=== PATIENT | female | born 1935 | race Caucasian/White ===

== ENCOUNTER → 2016-12-15 | Outpatient (CLI) | payer MEDICARE ==
[~2016-12-15] MED LIST: ALDA25TA2 PO; ASPI1TAB PO; BACITAB3 PO; CETI10TA PO; D5W 1,000 ML IV SCH; DIGO0.12 PO; DIGO5EL PO; ELIQ5TAB PO; FISH100049 PO; FURO20TA2 PO; LIDOCAINE VISCOUS 2% SOLN 15ML UDC As Ordered ONE; LISI10TA4 PO; LOPR1TAB6 PO; MIDAZOLAM INJ 2 MG/2 ML VIAL (J2250) As Ordered ONE; MULT1TAB8 PO; OSCA200T PO; PANT20TA PO; RANI15TA PO; VITMTA PO
[2016-12-15 16:35] VITALS: BP 107/59
--- NOTE | 2016-12-15 18:13 | T-ECHO ---
DATE OF PROCEDURE: 12/15/2016 REFERRING PHYSICIAN: Dr. Silvestre Caldwell INDICATION: 1. Mitral valve disorders (non-rheumatic). 2. 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 POSTPROCEDURE DIAGNOSES: 1. Mitral isak prolapse (non-rheumatic mitral valve disorders) with moderate mitral regurgitation. 2. No vegetations. 3. Moderate aortic valve sclerosis with very mild aortic regurgitation. 4. Moderate atheroma involving the distal aortic arch and descending thoracic aorta. 5. Enlargement of the left atrium and left atrial appendage. FINDINGS: 1. Mitral isak prolapse (non-rheumatic mitral valve disorders) with moderate mitral regurgitation. 2. No vegetations. 3. Moderate aortic valve sclerosis with very mild aortic regurgitation. 4. Moderate atheroma involving the distal aortic arch and descending thoracic aorta. 5. Enlargement of the left atrium and left atrial appendage. PROCEDURE PERFORMED: Transesophageal echocardiogram. PROCEDURE PERFORMED BY: Silvestre Caldwell MD MOLD UNLOADER: None. LIGHT CONSCIOUS SEDATION: Midazolam 3 mg IV. COMPLICATIONS: None. DESCRIPTION OF PROCEDURE: Esophageal intubation was accomplished with a Hever multiplane two-dimensional transesophageal echocardiogram probe. This was moderately difficult due to presence of a pharyngeal spur but ultimately I was successful at esophageal intubation. Rhythm was atrial fibrillation with controlled ventricular response. The left ventricle appeared normal in size and systolic function. Right ventricle appeared normal in size and systolic function. Left atrium and left atrial appendage were enlarged. Type 1 spontaneous echocontrast was seen within the left atrium. Mild mitral valve prolapse was present and also there was loose chordae but no broken chordae and no flail segments. Moderate mitral regurgitation was present with two jets of mitral regurgitation observed. No systolic flow reversal in the left upper pulmonary vein by pulse wave Doppler. Tricuspid leaflets appeared structurally and functionally normal. Pulmonic valve appeared normal. Aortic valve was 3-cuspid and displayed moderate focal thickening and focal calcific deposits. No aortic stenosis. Very mild aortic regurgitation was present. In addition to left atrial enlargement and enlargement of the left atrial appendage, there was also type 1 spontaneous echo contrast (smoke). No pericardial effusion. Distal aortic arch and descending thoracic aorta demonstrated mild atheroma without mobile components. CONCLUSIONS: 1. Non-rheumatic mitral valve disorders (mitral valve prolapse) with mild prolapse. Associated loose chordae but no broken chordae and no flail segments. Moderate mitral regurgitation. 2. Moderate aortic valve sclerosis without stenosis. Very mild aortic regurgitation. 3. Normal left ventricle size and systolic function. No regional wall motion abnormalities. 4. Moderate atheroma involving the distal aortic arch and descending thoracic aorta. No mobile components. 5. Left atrial enlargement and enlargement of the left atrial appendage. 6. Type 1 spontaneous echo contrast seen in the left atrium.
== END ==
LOC: M OPP 13:53
PROVIDERS: ATTEND Internal Medicine Cardiovascular Disease
DX: I34.8 Other nonrheumatic mitral valve disorders (principal); I70.0 Atherosclerosis of aorta; I51.7 Cardiomegaly; Z79.899 Other long term (current) drug therapy; Z79.82 Long term (current) use of aspirin
CPT/HCPCS: 93312; 93320; 93325; J2250

== ENCOUNTER → 2017-01-20 | Outpatient (REF) | payer MEDICARE ==
[~2017-01-20] MED LIST changes: -D5W 1,000 ML IV SCH; -LIDOCAINE VISCOUS 2% SOLN 15ML UDC As Ordered ONE; -MIDAZOLAM INJ 2 MG/2 ML VIAL (J2250) As Ordered ONE
[2017-01-20 17:11] LABS: ALBUMIN 3.4 GM/DL (3.2-5.2); CALCIUM LEVEL 8.7 MG/DL (8.8-10.2); CREATININE FOR GFR 1.07 MG/DL (0.55-1.02); DIGOXIN LEVEL 0.7 NG/ML (0.5-2.0); GLOMERULAR FILTRATION RATE 52.5 (>32); PHOSPHORUS LEVEL 3.4 MG/DL (2.5-4.9); POTASSIUM SERUM 4.7 MEQ/L (3.5-5.1)
== END ==
LOC: M LABDRAW1 15:09
PROVIDERS: ATTEND Internal Medicine Cardiovascular Disease
DX: I48.2 Chronic atrial fibrillation (principal); I50.33 Acute on chronic diastolic (congestive) heart failure

== ENCOUNTER → 2017-03-17 | Outpatient (REF) | payer MEDICARE ==
[2017-03-17 12:35] LABS: MEAN CORPUSCULAR HEMOGLOBIN 31.1 pg (27.0-33.0); MEAN CORPUSCULAR VOLUME 97.2 fl (80.0-96.0)
[2017-03-17 12:43] LABS: ALBUMIN 3.7 GM/DL (3.2-5.2); ALBUMIN/GLOBULIN RATIO 1.37 (1.00-1.93); BILIRUBIN,TOTAL 0.4 MG/DL (0.2-1.0); CALCIUM LEVEL 9.2 MG/DL (8.8-10.2); CREATININE FOR GFR 1.04 MG/DL (0.55-1.02); GLOMERULAR FILTRATION RATE 54.3 (>32); POTASSIUM SERUM 4.9 MEQ/L (3.5-5.1); TOTAL PROTEIN 6.4 GM/DL (6.4-8.2)
== END ==
LOC: M SFHCPLAZ 07:41
PROVIDERS: ATTEND Internal Medicine
DX: D72.829 Elevated white blood cell count, unspecified (principal); I10 Essential (primary) hypertension

== ENCOUNTER → 2017-07-10 | Outpatient (REF) | payer MEDICARE ==
[~2017-07-10] MED LIST changes: +BACITAB PO; -BACITAB3 PO
[2017-07-10 13:07] LABS: ALBUMIN 3.7 GM/DL (3.2-5.2); ALBUMIN/GLOBULIN RATIO 1.09 (1.00-1.93); BILIRUBIN,TOTAL 0.5 MG/DL (0.2-1.0); CALCIUM LEVEL 9.3 MG/DL (8.8-10.2); CREATININE FOR GFR 1.04 MG/DL (0.55-1.02); GLOMERULAR FILTRATION RATE 54.3 (>32); POTASSIUM SERUM 4.5 MEQ/L (3.5-5.1); TOTAL PROTEIN 7.1 GM/DL (6.4-8.2)
== END ==
LOC: M SFHCPLAZ 08:00
PROVIDERS: ATTEND Internal Medicine
DX: I10 Essential (primary) hypertension (principal); E78.00 Pure hypercholesterolemia, unspecified; I48.2 Chronic atrial fibrillation

== ENCOUNTER → 2017-11-30 | Outpatient (REF) | payer MEDICARE ==
[2017-11-30 13:50] LABS: ALBUMIN 3.8 GM/DL (3.2-5.2); ALBUMIN/GLOBULIN RATIO 1.23 (1.00-1.93); ALKALINE PHOSPHATASE 88 U/L (45-117); ALT/SGPT 35 U/L (12-78); ANION GAP 5 MEQ/L (8-16); AST/SGOT 39 U/L (7-37); BILIRUBIN,TOTAL 0.5 MG/DL (0.2-1.0); BLOOD UREA NITROGEN 44 MG/DL (7-18); CALCIUM LEVEL 9.3 MG/DL (8.8-10.2); CARBON DIOXIDE LEVEL 34 MEQ/L (21-32); CHLORIDE LEVEL 101 MEQ/L (98-107); GLOMERULAR FILTRATION RATE 56.6 (>32); GLUCOSE, FASTING 82 MG/DL (70-100); MAGNESIUM LEVEL 2.5 MG/DL (1.8-2.4); POTASSIUM SERUM 4.7 MEQ/L (3.5-5.1); SODIUM LEVEL 140 MEQ/L (136-145); TOTAL PROTEIN 6.9 GM/DL (6.4-8.2)
== END ==
LOC: M SFHCPLAZ 08:45
DX: I10 Essential (primary) hypertension (principal)
CPT/HCPCS: 83735

== ENCOUNTER → 2018-04-13 | Outpatient (REF) | payer MEDICARE ==
[2018-04-13 10:56] LABS: ALBUMIN 3.8 GM/DL (3.2-5.2); ALBUMIN/GLOBULIN RATIO 1.12 (1.00-1.93); ALKALINE PHOSPHATASE 94 U/L (45-117); ALT/SGPT 38 U/L (12-78); ANION GAP 7 MEQ/L (8-16); AST/SGOT 40 U/L (7-37); BILIRUBIN,TOTAL 0.5 MG/DL (0.2-1.0); BLOOD UREA NITROGEN 38 MG/DL (7-18); CALCIUM LEVEL 9.5 MG/DL (8.8-10.2); CARBON DIOXIDE LEVEL 33 MEQ/L (21-32); CHLORIDE LEVEL 101 MEQ/L (98-107); CHOLESTEROL LEVEL 165 MG/DL (<200); CHOLESTEROL RISK RATIO 2.462 (<5); CREATININE FOR GFR 1.07 MG/DL (0.55-1.30); GLOMERULAR FILTRATION RATE 52.4 (>32); GLUCOSE, FASTING 84 MG/DL (70-100); HDL CHOLESTEROL 67 MG/DL (>40); LDL CHOLESTEROL 87.2 MG/DL (<100); MAGNESIUM LEVEL 2.5 MG/DL (1.8-2.4); NON-HDL-C 98 MG/DL; POTASSIUM SERUM 4.8 MEQ/L (3.5-5.1); SODIUM LEVEL 141 MEQ/L (136-145); TOTAL PROTEIN 7.2 GM/DL (6.4-8.2); TRIGLYCERIDES LEVEL 54 MG/DL (<150)
== END ==
LOC: M SFHCPLAZ 07:58
DX: I10 Essential (primary) hypertension (principal); E78.00 Pure hypercholesterolemia, unspecified
CPT/HCPCS: 83735

== ENCOUNTER → 2018-10-20 | Outpatient (REF) | payer MEDICARE ==
[2018-10-20 13:17] LABS: ALBUMIN 3.6 GM/DL (3.2-5.2); ALBUMIN/GLOBULIN RATIO 1.13 (1.00-1.93); ALKALINE PHOSPHATASE 109 U/L (45-117); ALT/SGPT 39 U/L (12-78); ANION GAP 9 MEQ/L (8-16); AST/SGOT 44 U/L (7-37); BILIRUBIN,TOTAL 0.4 MG/DL (0.2-1.0); BLOOD UREA NITROGEN 37 MG/DL (7-18); CARBON DIOXIDE LEVEL 30 MEQ/L (21-32); CHLORIDE LEVEL 102 MEQ/L (98-107); CREATININE FOR GFR 1.06 MG/DL (0.55-1.30); GLUCOSE, FASTING 67 MG/DL (70-100); MAGNESIUM LEVEL 2.2 MG/DL (1.8-2.4); POTASSIUM SERUM 4.2 MEQ/L (3.5-5.1); SODIUM LEVEL 141 MEQ/L (136-145); TOTAL PROTEIN 6.8 GM/DL (6.4-8.2)
== END ==
LOC: M SFHCPLAZ 09:13
DX: I10 Essential (primary) hypertension (principal); M89.8X5 Other specified disorders of bone, thigh
CPT/HCPCS: 83735

== ENCOUNTER → 2018-12-24 | Outpatient (CLI) | payer MEDICARE ==
[~2018-12-24] MED LIST changes: -PANT20TA PO; +PANT20TA2 PO
--- NOTE | 2018-12-24 13:55 | REP ---
Chest two views HISTORY: Acute bronchitis Comparison: 10/24/2016 An increase in interstitial markings is present in the lungs consistent with chronic interstitial fibrosis. A calcified granuloma is present in the right upper lobe. Parenchymal density is present in the left lower lobe consistent with atelectasis or infiltrate. The cardiac silhouette is enlarged. The pulmonary vasculature is normal in appearance. There is scoliosis of the the upper and mid thoracic spine convex to the right and lower thoracic and lumbar spine convex to the left. Degenerative change is present in the thoracic spine. IMPRESSION: Chronic interstitial fibrosis. 2. Left lower lobe atelectasis or infiltrate. Electronically Signed by Geovany Ortega MD 12/24/2018 01:47 P
== END ==
LOC: M WUC 12:06
PROVIDERS: ATTEND Physician Assistant
DX: R91.8 Other nonspecific abnormal finding of lung field (principal); J98.4 Other disorders of lung; J20.9 Acute bronchitis, unspecified

== ENCOUNTER → 2019-03-27 | Outpatient (CLI) | payer MEDICARE ==
[~2019-03-27] MED LIST changes: -ASPI1TAB PO; +ASPI81TA26 PO
--- NOTE | 2019-03-27 11:47 | REP ---
HISTORY: Followup pneumonia. COMPARISON: 12/24/2018, which showed a patchy opacity in the left lower lobe consistent with pneumonia. The patchy opacity seen previously has resolved. Chronic fibrotic changes are seen throughout the lung fallon, status quo. No acute patchy parenchymal opacities or pleural effusions have developed. There is cardiomegaly, status quo. There are chronic osseous changes which are stable. There is an incidental calcified granuloma in the right upper lobe, stable. IMPRESSION: Chronic changes without evidence of acute cardiopulmonary disease. Electronically Signed by Osbaldo Tobin DO 03/27/2019 12:03 P
== END ==
LOC: M WUC 11:03
PROVIDERS: ATTEND Internal Medicine
DX: J18.1 Lobar pneumonia, unspecified organism (principal); I51.7 Cardiomegaly

== ENCOUNTER → 2019-04-26 | Outpatient (REF) | payer MEDICARE ==
[~2019-04-26] MED LIST changes: +ATOR1TAB19; +BISO5TAB5 PO; +DIGO0.12; +ELIQ2.5T PO; +FERR325T3 PO; +PROBCAP14 PO
[2019-04-26 11:31] LABS: ALBUMIN 3.7 GM/DL (3.2-5.2); BILIRUBIN,TOTAL 0.6 MG/DL (0.2-1.0); CALCIUM LEVEL 9.4 MG/DL (8.8-10.2); CHOLESTEROL RISK RATIO 2.253 (<5); CREATININE FOR GFR 1.05 MG/DL (0.55-1.30); GLOMERULAR FILTRATION RATE 53.4 (>32); MAGNESIUM LEVEL 2.2 MG/DL (1.8-2.4); POTASSIUM SERUM 4.4 MEQ/L (3.5-5.1); THYROID STIMULATING HORMONE 2.4 uIU/ML (0.358-3.740)
== END ==
LOC: M SFHCPLAZ 08:36
PROVIDERS: ATTEND Internal Medicine
DX: I10 Essential (primary) hypertension (principal); E78.00 Pure hypercholesterolemia, unspecified; R62.7 Adult failure to thrive

== ENCOUNTER 2019-04-29 12:45 | Day surgery (SDC) | payer MEDICARE ==
[~2019-04-29] VITALS: Ht 160 cm; Wt 47.5 kg
[~2019-04-29 12:45] MED LIST changes: +LIDOCAINE 1% MDV 20ML VIAL SQ PRN; +LIDOCAINE 2% INJ 100 MG/5 ML SDV (FOR ANES.) As Ordered ONE; +LR 1,000 ML IV ONE; +fentaNYL 100 MCG/2 ML INJECTION (J3010) As Ordered ONE
[2019-04-29] MEDS ORDERED: LIDOCAINE VISCOUS 2% SOLN 15ML UDC As Ordered ONE (13:51)
[2019-04-29] MEDS ORDERED: PROPOFOL 200 MG/20 ML VIAL As Ordered ONE (14:29)
[2019-04-29] MEDS ORDERED: LABETALOL HCL 100 MG/20 ML VIAL As Ordered ONE (14:29)
--- NOTE | 2019-04-29 15:25 | T-ECHO ---
DATE OF PROCEDURE: 04/29/2019 REFERRING PROVIDER: OLYA Varner PREPROCEDURE DIAGNOSES: Mitral valve prolapse with mitral regurgitation. POSTPROCEDURE DIAGNOSES: Mitral valve prolapse with mitral regurgitation. See additional findings in conclusions below. PRINCIPAL FINDINGS: Mitral valve prolapse of the anterior and posterior mitral leaflets with myxomatous mitral leaflets. Associated moderate mitral regurgitation. No flail segments. Left atrial dilatation with type 1 spontaneous echo contrast in the left atrium and dense spontaneous echo contrast in the left atrial appendage. Presence of a left atrial appendage thrombus. Tricuspid valve prolapse with moderate tricuspid regurgitation. Normal LV systolic function. Right ventricle dilatation with right ventricle systolic function. Appearance of right ventricular hypertrophy. Calcific aortic valve disease with mild aortic regurgitation and by visual assessment at least mild aortic stenosis. Severe atheroma in the distal aortic arch and descending thoracic aorta. PROCEDURE: Transesophageal echocardiogram. ANESTHESIA: Moderate anesthetic care, as per [employer]. PROCEDURE PERFORMED BY: Silvestre Caldwell MD DISTRIBUTION SALES REPRESENTATIVE: None. The patient received viscous lidocaine to the back of her pharynx. COMPLICATIONS: None. DESCRIPTION OF PROCEDURE: Rhythm was atrial fibrillation with a controlled ventricular response. Esophageal intubation was performed with a Hever three-dimensional transesophageal echocardiogram probe. Esophageal intubation was difficult, but was eventually successful by Dr. Caldwell. The difficulty was a pharyngeal spur with a small esophageal opening. The left ventricle appeared normal in size and systolic function. Left ventricular ejection fraction was 70% by visual estimate. The right ventricles was dilated and had prominent trabeculations, suggestive of right ventricle hypertrophy. Normal right ventricle systolic function. The atria appeared enlarged. The left atrium especially appeared to be prominently enlarged. There was a small thrombus in the left atrial appendage. Type 1 spontaneous echo contrast is seen in the left atrium and was quite dense in the left atrial appendage. Atrial septum was intact anatomically and by color flow Doppler. Aortic valve was three-cusp and had severe focal thickening and focal calcific deposits and mild to moderate reduction in aortic cusp mobility. No fusion of the aortic cusps. Mild aortic regurgitation. By visual assessment, there appeared to be at least mild and at most moderate aortic valve stenosis. Mitral leaflets were myxomatous and displayed mitral valve prolapse at both the anterior and posterior mitral leaflets, especially the posterior mitral leaflet. No broken cordae or flail segments of the mitral leaflets. Multiple jets of mitral regurgitation was present. The overall degree of mitral valve regurgitation was judged to be moderate mitral regurgitation. Tricuspid leaflets appeared myxomatous and showed tricuspid valve prolapse. Moderate tricuspid regurgitation was present. Pulmonic valve was only mildly visualized and did appear normal. Mild pulmonic regurgitation was present. No pericardial effusion. The distal aortic arch and descending and thoracic aorta showed patches of severe atheroma. CONCLUSIONS: 1. 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 No broken cordae or flail segments. Moderate mitral regurgitation. 2. Left atrial appendage thrombus. Type 1 spontaneous echo contrast within the left atrium and left atrial appendage. 3. Probably severe left atrial dilatation by visual assessment. 4. Tricuspid valve prolapse with moderate tricuspid regurgitation. 5. Normal left ventricular size and systolic function. No regional LV wall motion abnormalities of the left ventricle. Left ventricular ejection fraction 70% by visual estimate. 6. Right ventricle dilatation with right ventricle hypertrophy. Normal RV systolic function. 7. Severe focal thickening and focal calcific deposits of a 3-cusp aortic valve. Mild aortic regurgitation. By visual assessment, there appeared to be mild to possibly moderate degree of aortic stenosis. 8. Severe atheroma in the distal aortic arch and descending thoracic aorta.
[2019-04-29 16:25] VITALS: BP 110/58
== END 2019-04-29 16:42 | disposition home or self-care (01) ==
LOC: M SDC 12:45
PROVIDERS: ATTEND Internal Medicine Cardiovascular Disease
DX: I34.1 Nonrheumatic mitral (valve) prolapse (principal); I48.2 Chronic atrial fibrillation; I10 Essential (primary) hypertension; E78.5 Hyperlipidemia, unspecified; Z79.01 Long term (current) use of anticoagulants; Z79.899 Other long term (current) drug therapy
CPT/HCPCS: 93312; 93320; 93325; J3010

== ENCOUNTER 2019-05-07 20:40 | Emergency (ER) | payer MEDICARE ==
[~2019-05-07] VITALS: Ht 160 cm; Wt 47.3 kg
[~2019-05-07 20:40] MED LIST changes: -LIDOCAINE 1% MDV 20ML VIAL SQ PRN; -LIDOCAINE 2% INJ 100 MG/5 ML SDV (FOR ANES.) As Ordered ONE; -LR 1,000 ML IV ONE; -fentaNYL 100 MCG/2 ML INJECTION (J3010) As Ordered ONE
[2019-05-07] MEDS ORDERED: ADACEL/BOOSTRIX VACCINE (DIPHTH/PERTUSS/ACELL/TETANUS)0.5ML SYR (90715) IM ONE (21:30)
[2019-05-07 21:42] VITALS: BP 146/73
== END 2019-05-07 21:59 | disposition home or self-care (01) ==
LOC: M ED 20:40
DX: S20.412A Abrasion of left back wall of thorax, initial encounter (principal); S70.12XA Contusion of left thigh, initial encounter; W01.0XXA Fall on same level from slipping, tripping and stumbling without subsequent striking against object, initial encounter; Y92.098 Other place in other non-institutional residence as the place of occurrence of the external cause; K21.9 Gastro-esophageal reflux disease without esophagitis; J30.9 Allergic rhinitis, unspecified; Z88.4 Allergy status to anesthetic agent; Z79.899 Other long term (current) drug therapy; Z79.01 Long term (current) use of anticoagulants

== ENCOUNTER → 2019-05-10 | Outpatient (CLI) | payer MEDICARE ==
--- NOTE | 2019-05-10 13:54 | REP ---
Clinical: Pain. Technique: Single AP view of the pelvis. Findings: Age-related osteopenia and moderate degenerative changes to the pelvis and hips noted. No obvious acute fracture or dislocation. Impression: Osteopenia and moderate generalized degenerative changes. No acute fracture or dislocation. Electronically Signed by Gamal Edwards MD 05/10/2019 01:46 P
--- NOTE | 2019-05-10 13:56 | REP ---
Clinical: Low back pain with recent fall. Technique: AP, lateral, bilateral oblique and coned-down views of the lumbosacral spine. Findings: Osteopenia with chronic mild levoconvex scoliosis and moderate multilevel degenerative disc osteophyte complexes noted. No obvious acute fracture / compression injury or subluxation. Extensive atherosclerotic changes to the aorta and branch vessels noted. Impression: Osteopenia and multilevel degenerative spondylosis. No obvious acute fracture / compression injury or subluxation. Electronically Signed by Gamal Edwards MD 05/10/2019 01:48 P
== END ==
LOC: M WUC 12:33
PROVIDERS: ATTEND Physician Assistant
DX: M25.78 Osteophyte, vertebrae (principal)

== ENCOUNTER → 2019-11-10 | Outpatient (CLI) | payer MEDICARE ==
[~2019-11-10] MED LIST changes: -BISO5TAB5 PO; +BISO5TAB9 PO; -DIGO0.12; +DIGO0.123
--- NOTE | 2019-11-10 12:00 | REP ---
Clinical: Acute bronchitis. Technique: PA and lateral. Comparison: 03/27/2019. Findings: Mediastinum and cardiac silhouette are within normal limits and stable. Lung fallon demonstrate diffuse chronic fibrosis and COPD/emphysematous changes. Acute right lower lobe infiltrate compatible with pneumonia. No effusion. No pneumothorax. Skeletal structures demonstrate osteopenia and degenerative changes. Impression: Acute right lower lobe pneumonia. Electronically Signed by Gamal Edwards MD 11/10/2019 11:51 A
== END ==
LOC: M WUC 11:33
PROVIDERS: ATTEND Physician Assistant
DX: J18.9 Pneumonia, unspecified organism (principal); J20.9 Acute bronchitis, unspecified

== ENCOUNTER → 2019-12-19 | Outpatient (CLI) | payer MEDICARE ==
[~2019-12-19] MED LIST changes: +BISO5TAB14 PO; -BISO5TAB9 PO
[2019-12-19 12:14] LABS: ALBUMIN 3.6 GM/DL (3.2-5.2); ALT/SGPT 31 U/L (12-78); BILIRUBIN,TOTAL 0.5 MG/DL (0.2-1.0); BLOOD UREA NITROGEN 29 MG/DL (7-18); CARBON DIOXIDE LEVEL 34 MEQ/L (21-32); CHLORIDE LEVEL 102 MEQ/L (98-107); CREATININE FOR GFR 0.88 MG/DL (0.55-1.30); GLOMERULAR FILTRATION RATE > 60.0 (>32); GLUCOSE, FASTING 94 MG/DL (70-100); MAGNESIUM LEVEL 2.2 MG/DL (1.8-2.4); POTASSIUM SERUM 4.8 MEQ/L (3.5-5.1); SODIUM LEVEL 141 MEQ/L (136-145); TOTAL PROTEIN 6.6 GM/DL (6.4-8.2)
== END ==
LOC: M PLALAB 09:05
PROVIDERS: ATTEND Internal Medicine
DX: I10 Essential (primary) hypertension (principal)

== ENCOUNTER → 2020-01-09 | Outpatient (CLI) | payer MEDICARE ==
--- NOTE | 2020-01-09 12:10 | REPPI ---
CHEST, TWO VIEWS: Comparison 11/10/2019 as well as other prior exams. The previously noted right lower lobe infiltrate appears to have essentially resolved. There is underlying mild interstitial fibrosis in each lung base which appears similar to more remote exams. Calcified granulomas again seen in the right apex. The heart is mildly enlarged. There is calcification of the thoracic aorta. Mediastinal silhouette is unchanged. There is curvature of the thoracolumbar spine convex to the left with degenerative changes. A stable compression deformity of an upper thoracic vertebral body is again noted. IMPRESSION: Previously noted right lower lobe infiltrate appears to have resolved. There are stable underlying chronic changes. Electronically Signed by Jesus Kraus MD 01/09/2020 01:36 P
== END ==
LOC: M PLAIMG 11:02
PROVIDERS: ATTEND Internal Medicine
DX: Z12.39 Encounter for other screening for malignant neoplasm of breast (principal); Z87.01 Personal history of pneumonia (recurrent)

== ENCOUNTER → 2020-01-20 | Outpatient (CLI) | payer MEDICARE ==
--- NOTE | 2020-01-20 09:02 | REPMRS ---
Patient History The patient states she has not had a clinical breast exam in over a year. Family history of breast cancer at age 45 in daughter. Digital Woman Screen Mammo: January 20, 2020 - Exam #: [id number] Bilateral CC and MLO view(s) were taken. Technologist: Lita Albright, Technologist Prior study comparison: May 30, 2015, digital woman screen mammo performed at [facility]. January 19, 2013, digital woman screen mammo performed at [facility]. July 23, 2011, bilateral bilat screen digital mammo performed at [facility]. FINDINGS: The breast tissue is heterogeneously dense. This may lower the sensitivity of mammography. There is a moderate amount of heterogeneously dense fibroglandular tissue which is fairly symmetric. There is no interval development of dominant mass, architectural distortion, or grouped microcalcification typical of malignancy. There has been no change in the appearance of the mammogram from the prior studies. Assessment: BI-RADS/ACR category 1 mammogram. Negative Mammogram. Recommendation Routine screening mammogram of both breasts in 1 year (for women over age 40). This patient's Lifetime Breast Cancer RIsk is estimated at 1.1 This mammogram was interpreted with the aid of an FDA-approved computer-aided dectection system. Electronically Signed By: Wil Hernandez MD 01/20/20 0901
== END ==
LOC: M WHC 07:50
PROVIDERS: ATTEND Internal Medicine
DX: Z12.31 Encounter for screening mammogram for malignant neoplasm of breast (principal); Z80.3 Family history of malignant neoplasm of breast

== ENCOUNTER → 2020-06-25 | Outpatient (REF) | payer MEDICARE ==
[~2020-06-25] MED LIST changes: -PANT20TA2 PO; +PANT20TA6 PO
[2020-08-20 23:52] LABS: ALBUMIN 3.9 GM/DL (3.2-5.2); BILIRUBIN,TOTAL 0.5 MG/DL (0.2-1.0); CALCIUM LEVEL 9.3 MG/DL (8.8-10.2); CHOLESTEROL RISK RATIO 2.433 (<5); CREATININE FOR GFR 0.97 MG/DL (0.55-1.30); GLOMERULAR FILTRATION RATE 58.4 (>32); POTASSIUM SERUM 4.1 MEQ/L (3.5-5.1); TOTAL PROTEIN 6.9 GM/DL (6.4-8.2)
[2020-08-20 23:53] LABS: MAGNESIUM LEVEL 2.1 MG/DL (1.8-2.4)
== END ==
LOC: M SFHCPLAZ 12:20
PROVIDERS: ATTEND Internal Medicine
DX: I10 Essential (primary) hypertension (principal); E78.00 Pure hypercholesterolemia, unspecified

== ENCOUNTER → 2021-01-09 | Outpatient (CLI) | payer MEDICARE ==
[~2021-01-09] MED LIST changes: +LISI10TA22 PO; -LISI10TA4 PO
[2021-01-09 14:36] LABS: ALBUMIN 3.7 GM/DL (3.2-5.2); CREATININE FOR GFR 0.95 MG/DL (0.55-1.30); GLOMERULAR FILTRATION RATE 59.7 (>32); MAGNESIUM LEVEL 2.4 MG/DL (1.8-2.4); PHOSPHORUS LEVEL 3.8 MG/DL (2.5-4.9); POTASSIUM SERUM 4.8 MEQ/L (3.5-5.1)
== END ==
LOC: M PLALAB 10:37
PROVIDERS: ATTEND Internal Medicine Cardiovascular Disease
DX: I50.32 Chronic diastolic (congestive) heart failure (principal)

== ENCOUNTER 2021-02-01 16:35 | Inpatient (IN) | payer MEDICARE ==
[~2021-02-01] VITALS: Ht 160 cm; Wt 44.4 kg
[~2021-02-01 16:35] MED LIST changes: -VENTAER INH
--- NOTE | 2021-02-01 18:12 | REPVR ---
PROCEDURE INFORMATION: Exam: CT Abdomen And Pelvis Without Contrast Exam date and time: 02/01/2021 4:50 PM Age: 85 years old Clinical indication: Pain; Other: Flank; Additional info: Flank pain TECHNIQUE: Imaging protocol: Computed tomography of the abdomen and pelvis without contrast. Radiation optimization: All CT scans at this facility use at least one of these dose optimization techniques: automated exposure control; mA and/or kV adjustment per patient size (includes targeted exams where dose is matched to clinical indication); or iterative reconstruction. COMPARISON: CR PELVIS COMPLETE 05/10/2019 1:22 PM FINDINGS: Lungs: Coarse linear opacities at both lung bases with evidence of mosaic perfusion Heart: There is moderate cardiomegaly There is calcification of the mitral annulus. Liver: Calcified granulomas noted within the liver and the spleen. Gallbladder and bile ducts: Normal. No calcified stones. No ductal dilation. Pancreas: Normal. No ductal dilation. Spleen: Spleen measures 14 cm in craniocaudal span.. Adrenal glands: Normal. No mass. Kidneys and ureters: 2.2 cm low-density lesion lower pole right kidney (1 H). Hyperdense lesion upper pole left kidney (84 H). No hydronephrosis in either kidney. Stomach and bowel: Moderate to large amount of stool in the colon. Scattered colonic diverticula. Appendix: Not definitely seen as a separate structure.. Intraperitoneal space: There is ascites. Vasculature: calcification of the abdominal aorta with no aneurysm. Lymph nodes: Unremarkable. No enlarged lymph nodes. Urinary bladder: Unremarkable as visualized. Reproductive: Unremarkable as visualized. Bones/joints: Bones are mildly heterogeneous in density. Soft tissues: there is anasarca. IMPRESSION: 1. No acute findings. No renal, ureteral or bladder calculi. No hydronephrosis or hydroureter. 2. Moderate cardiomegaly with ascites and anasarca. 3. Bilateral renal lesions not fully characterized on this examination but likely benign in light of their density measurements.No further workup recommended. 4. Mildly heterogeneous bone density may be related to underlying osteopenia. Infiltrative neoplasm is another possibility and clinical correlation is needed. 5. Moderate to large amount of stool in the colon. COMMENTS: Consistent with the [employer]'s Incidental Findings Committee white paper (J Am David Radiol 2018): Any incidental renal lesion less than 1 cm or classified as too small to characterize, or any incidental cystic renal lesion characterized as simple-appearing, is likely benign. No follow-up imaging is recommended for these lesions per consensus recommendations based on imaging criteria. Electronically signed by: Ange Tom On 02/01/2021 18:12:17 PM
[2021-02-01] MEDS ORDERED: cefTRIAXone SOD 1 GM in D5W MINI-BAG PLUS 50 ML IV ONE (18:45)
[2021-02-01] MEDS ORDERED: NS 1,000 ML IV SCH (18:45)
[2021-02-01] MEDS ORDERED: ISOVUE-370 76% 100ML VIAL As Ordered ONE (18:54)
[2021-02-01 19:41] LABS: HEMATOCRIT 37.2 % (36.0-47.0); MEAN CORPUSCULAR HEMOGLOBIN 29.7 pg (27.0-33.0); MEAN CORPUSCULAR HGB CONC 29.6 g/dl (32.0-36.5); MEAN CORPUSCULAR VOLUME 100.5 fl (80.0-96.0); PLATELET COUNT, AUTOMATED 108 10^3/uL (150-450)
[2021-02-01 19:48] LABS: WHITE BLOOD COUNT 68.7 10^3/uL (4.0-10.0)
[2021-02-01 19:50] LABS: INR 1.29; PROTHROMBIN TIME 16.4 SECONDS (12.5-14.3)
[2021-02-01 19:51] LABS: PARTIAL THROMBOPLASTIN TIME 27.5 SECONDS (24.2-38.5)
--- NOTE | 2021-02-01 19:51 | REPVR ---
PROCEDURE INFORMATION: Exam: CT Abdomen And Pelvis With Contrast Exam date and time: 02/01/2021 7:27 PM Age: 85 years old Clinical indication: Other: Hematuria; Additional info: Pyelonephritis, hematuria TECHNIQUE: Imaging protocol: Computed tomography of the abdomen and pelvis with contrast. Radiation optimization: All CT scans at this facility use at least one of these dose optimization techniques: automated exposure control; mA and/or kV adjustment per patient size (includes targeted exams where dose is matched to clinical indication); or iterative reconstruction. Contrast material: ISOVUE 370; Contrast volume: 100 ml; Contrast route: INTRAVENOUS (IV); COMPARISON: CT ABD PELVIS W/O CONTRAST 02/01/2021 5:02 PM FINDINGS: Lungs: Coarse linear opacities are present at both lung bases. Mosaic perfusion abnormality noted at both lung bases. This could reflect air trapping, bronchiolitis or chronic veno-occlusive disease Heart: There is cardiomegaly with severe biatrial enlargement. Liver: Liver measures 16.6 cm in craniocaudal span. Gallbladder and bile ducts: Normal. No calcified stones. No ductal dilation. Pancreas: Normal. No ductal dilation. Spleen: Calcifications present within the spleen. Spleen measures 14 cm in craniocaudal span. Adrenal glands: Normal. No mass. Kidneys and ureters: 1.9 cm simple cyst lower pole right kidney. 5 mm hyperdense cyst upper pole left kidney. No hydronephrosis in either kidney. Symmetric nephrograms present bilaterally. Stomach and bowel: Moderate to large amount of stool in the colon. Appendix: Not seen as a separate structure. Intraperitoneal space: Small amount of perihepatic ascites and pelvis. Benign calcifications noted within the perineum. Vasculature: The inferior vena cava and hepatic veins are distended. Lymph nodes: Unremarkable. No enlarged lymph nodes. Urinary bladder: Unremarkable as visualized. Reproductive: Unremarkable as visualized. Bones/joints: Unremarkable. No acute fracture. Soft tissues: There is anasarca. IMPRESSION: 1. Cardiomegaly with the anasarca, ascites and dilated IVC. The findings suggest a congestive heart failure. 2. Splenomegaly. 3. Symmetric nephrograms noted of the kidneys. No hydronephrosis. 4. Bilateral benign renal cysts.No further workup recommended. 5. Moderate to large amount of stool in the colon. COMMENTS: Consistent with the [employer]'s Incidental Findings Committee white paper (J Am David Radiol 2018): Any incidental renal lesion less than 1 cm or classified as too small to characterize, or any incidental cystic renal lesion characterized as simple-appearing, is likely benign. No follow-up imaging is recommended for these lesions per consensus recommendations based on imaging criteria. Electronically signed by: Ange Tom On 02/01/2021 19:51:25 PM
[2021-02-01] MEDS ORDERED: FURO20TA2 PO (20:03)
[2021-02-01] MEDS ORDERED: VENTAER INH (20:03)
[2021-02-01 20:09] LABS: ANISOCYTOSIS 2+; LYMPHOCYTES 91 % (16-44); MONOCYTES 1 % (0-5); NEUTROPHILS 8 % (28-66); OVALOCYTES 1+; PLATELET ESTIMATE NORMAL (NORMAL); POIKILOCYTOSIS 1+
[2021-02-01] MEDS ORDERED: ACETAMINOPHEN TAB 650MG DOSE (2X325MG) PO PRN (22:30)
[2021-02-01] MEDS ORDERED: ALBUTEROL 90 MCG/ACT 8GM HFA INHALER INH PRN (22:35)
--- NOTE | 2021-02-01 23:09 | HPEPDOC ---
General Date of Admission Feb 01, 2021 at 21:39 Date of Service: Feb 01, 2021 Attending Physician: ALEJO FALCON MD Chief Complaint The patient is a 85-year-old female admitted with a reason for visit of Madhav. History of Present Illness This is a 80-year-old female was sent from her primary care's office for evaluation. The patient states that she's had right flank pain with gross hematuria 1 week. She denies dysuria or increase in urination or fever. The patient denies any chest pain, fever, chills, abdominal pain, nausea, vomiting, diarrhea. She has gained a few pounds in the past week or so and has been a bit more short of breath. Past Medical /Surgical History: Essential hypertension Longstanding persisent A. 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 She drinks an occasional drink of alcohol. Her son lives with her Thursday through Thursday, but on the weekends, she lives alone. Physical exam: Vital signs: see below Gen: Elderly female laying in bed, NAD. awake, alert, no acute distress Eyes: Extraocular movements intact, normal sclera ENT: Moist mucous membranes Cardiovascular: Irregularly irregular, no murmurs rubs or gallops Lungs: Crackles in bilateral lungs extending up to the midlung field Abdomen: Soft, NT/ND, normal BS Musculoskeletal: normal range of motion Extremities: 3+ pitting in bilateral edema Neuro: alert and oriented 3, normal speech, no focal deficits Psych: Normal mood with congruent affect Imaging: CT abd/pelvis w/ ctx: IMPRESSION: 1. Cardiomegaly with the anasarca, ascites and dilated IVC. The findings suggest a congestive heart failure. 2. Splenomegaly. 3. Symmetric nephrograms noted of the kidneys. No hydronephrosis. 4. Bilateral benign renal cysts.No further workup recommended. 5. Moderate to large amount of stool in the colon. CT abd/pelvis w/o ctx : 1. No acute findings. No renal, ureteral or bladder calculi. No hydronephrosis or hydroureter. 2. Moderate cardiomegaly with ascites and anasarca. 3. Bilateral renal lesions not fully characterized on this examination but likely benign in light of their density measurements.No further workup recommended. 4. Mildly heterogeneous bone density may be related to underlying osteopenia. Infiltrative neoplasm is another possibility and clinical correlation is needed. 5. Moderate to large amount of stool in the colon. ASSESSMENT AND PLAN #Acute on Chronic CHF exacerbation -will order for proBNP ; positive JVD, decompensated fluid status on exam; 3+ pitting edema bilat lower extr - upon chart review, ECHO in 2019 shows preserved EF 70%; severe L atrial dilata tion , moderate mitral regurg - will order for IV lasix 40mg daily - trop trending - O2 orders titrate >92% - position head of bed >45 deg - strict Ins and outs with daily weigh ins -2L fluid restriction #Hematuria -Per pt, her PCP sent her to the ER after running some tests that showed abn UA - Abd abd/pelvis w/o ctx- see report in imaging above - eliquis on hold - urine cx pending - will order bladder u/s - am team consider consulting urology as needed #Osteopenia - CT abdomen and pelvis without contrast shows mildly heterogeneous bone density may be related to underlying osteopenia. Infiltrative neoplasm is another possibility. Per report. - A.m. team- consider further workup #Hx of Afib RVR - eliquis held due to gross hematuria - rate control with bisoprolol- decrased dose to 2.5 due to increase in lasix. pt states she gets lightheaded taking lasix with bisoprolol. -Held parameter on bisoprolol (hold when SBP<100; HR <60 #Hx of CLL #chronic leukocytosis - Afebrile. per chart review white count that ranges anywhere from 15-23 since 05/2015 - IGG ordered per oncologist- PENDING - pt states she follows with Dr. Cruz PCP and bisque tile burner Dr. Isbell in [facility] - am team consider consult with heme/oncol - IV vanc and zosyn for broad coverage. will order for MRSA. #UTI -blood in urine - leukocytosis (may be multifactorial) - Received 1 dose of rocephin in ER - Pt denies dysuria or incrased frequency - I will not continue antibiotics, but we'll continue to monitor the patient closely. #Hypertension - decr bisoprolol to 2.5; lasix 40mg IV BID #hyperlipidemia - c./w home statin #Sarcopenia BMI 17.3 follow up with PCP for derrick boat captain consult to recommend high protein foods DVT ppx: teds/scds eliquis on hold due to hematuria code status: full Home Medications Scheduled Atorvastatin Calcium (Atorvastatin Calcium) 10 Mg Tablet, 10 MG PO QHS, (Reported) Bisoprolol Fumarate (Bisoprolol Fumarate) 5 Mg Tablet, 5 MG PO DAILY, (Reported) Digoxin (Digoxin) 125 Mcg Tablet, 125 MCG PO DAILY, (Reported) Ferrous Sulfate (Ferrous Sulfate) 325 Mg Tablet.dr, 325 MG PO Q2D, (Reported) lunch Furosemide (Furosemide) 20 Mg Tablet, 20 MG PO DAILY, (Reported) Lactobacillus Acidophilus (Probiotic) 1 Each Capsule, 1 CAP PO Q2D, (Reported) lunch Levofloxacin (Levofloxacin) 250 Mg Tablet, 250 MG PO DAILY@06 Multivitamins (Thera M Plus Tablet) 1 Tab Tab, 1 TAB PO DAILY, (Reported) Scheduled PRN Albuterol Sulfate (Ventolin Hfa) 18 Gm Hfa.aer.ad, 2 PUFF INH Q4-6HP PRN for wheezing, (Reported) Allergies Coded Allergies: procaine (Verified Allergy, Mild, STUFFY NOSE, RUNNY EYES, 04/26/19) ENVIROMENTAL (Verified Allergy, Unknown, 04/26/19) A-FIB/CHADSVASC A-FIB History Current/History of A-Fib/PAF?: Yes Current PO Anticoag Therapy: Yes (held due to hematuria. BARBARA/SCDS) Vital Signs Vital Signs Date Time Temp Pulse Resp B/P (MAP) Pulse Ox O2 Delivery O2 Flow Rate FiO2 02/01/21 16:36 97.2 111 18 144/82 (102) 100 Room Air Laboratory Data Labs 24H Laboratory Tests 2 02/01/21 19:25: Immunoglobulin G 986 02/01/21 19:26: Neutrophils (%) (Auto) , Nucleated Red Blood Cells % (auto) 0.0, Neutrophils 8L, Lymphocytes (Manual) 91H, Monocytes (Manual) 1, Poikilocytosis 1+, Anisocytosis 2+, Macrocytosis 1+, Ovalocytes 1+, Platelet Estimate NORMAL, Prothrombin Time 16.4H, Prothromb Time International Ratio 1.29, Activated Partial Thromboplast Time 27.5, Urine Color CHAKA, Urine Appearance CLOUDYH, Urine pH 6.0, Urine Specific [place] 1.015, Urine Protein 2+H, Urine Glucose (UA) NEGATIVE, Urine Ke tones NEGATIVE, Urine Blood 3+H, Urine Nitrite NEGATIVE, Urine Bilirubin NEGATIVE, Urine Urobilinogen 2.0H, Urine Leukocyte Esterase TRACEH, Urine WBC (Auto) TNTCH, Urine RBC (Auto) TNTCH, Urine Hyaline Casts (Auto) 0, Urine Bacteria (Auto) NEGATIVE, Urine Squamous Epithelial Cells 0, Urine Sperm (Auto) , Lactic Acid Level 1.9 02/01/21 20:18: Coronavirus (COVID-19)(PCR) NEGATIVE CBC/BMP Laboratory Tests 02/01/21 19:26 Microbiology Microbiology 02/01/21 Urine Culture, Received Pending 02/01/21 Blood Culture, Received Pending 02/01/21 Blood Culture, Received Pending Plan / VTE VTE Prophylaxis Ordered?: Yes (teds scds) GME ATTESTATION GME ATTESTATION My faculty preceptor for this patient encounter was physically present during the encounter and was fully available. All aspects of the patient interview, examination, medical decision making process, and medical care plan development were reviewed and approved by the faculty preceptor. The faculty preceptor is aware and concurs with the plan as stated in the body of this note and will attest to such by his/her cosignature. ATTENDING NOTE time of service 1030pm Ms. Santana is an 85 yr old w a hx of CLL, LA thrombus, TVR, A,fib, DLP, CAD, CVAs, myxomatous MV w MVP, TVP w TVR who presented w c/o back pain and was sent by her PCP who was concerned that the patient might have a UTI; she will be admitted for management of Ansarca and evaluation of hematuria. Plan: IV Lasix / request Echo from office / pt told that she should contact her Fiber Product Cutting Machine Operator if WBC > 100, per check IgG if it is < 500 will ask the day time team to call him / will repeat UA and ask the day time team to consult Uro regarding the hematuria Mihai Mcmillan DO Feb 01, 2021 23:09 ALEJO FALCON MD Feb 02, 2021 01:55
[2021-02-01 23:24] LABS: CALCIUM LEVEL 8.9 MG/DL (8.8-10.2); CREATININE FOR GFR 0.95 MG/DL (0.55-1.30); GLOMERULAR FILTRATION RATE 59.7 (>32); POTASSIUM SERUM 4.3 MEQ/L (3.5-5.1)
[2021-02-02 00:40] VITALS: BP 144/81
[2021-02-02] MEDS: ATORVASTATIN 10 MG TAB PO SCH ×2 (01:07→21:15)
--- NOTE | 2021-02-02 02:38 | REPVR ---
PROCEDURE INFORMATION: Exam: XR Chest Exam date and time: 02/02/2021 1:21 AM Age: 85 years old Clinical indication: Other: Leukocytosis TECHNIQUE: Imaging protocol: XR of the chest Views: 2 views. COMPARISON: No relevant prior studies available. FINDINGS: Lungs: Calcified granuloma in the right upper lobe. Mild left lower lobe infiltrate. Pleural spaces: Right costophrenic angle sharp. Blunting of the left costophrenic angle. No pneumothorax. Heart/Mediastinum: Mild cardiomegaly. Bones/joints: Unremarkable. IMPRESSION: 1. Mild left lower lobe infiltrate. Suspicious for pneumonia. 2. Blunting of the left costophrenic angle. Consistent small effusion. Electronically signed by: Donavan Sood On 02/02/2021 02:38:41 AM
[2021-02-02 06:00] VITALS: BP 141/81
[2021-02-02 06:07] LABS: HEMATOCRIT 37.7 % (36.0-47.0); HEMOGLOBIN 10.9 g/dl (12.0-15.5); MEAN CORPUSCULAR HEMOGLOBIN 29.4 pg (27.0-33.0); MEAN CORPUSCULAR HGB CONC 28.9 g/dl (32.0-36.5); MEAN CORPUSCULAR VOLUME 101.6 fl (80.0-96.0); PLATELET COUNT, AUTOMATED 110 10^3/uL (150-450); RED BLOOD COUNT 3.71 10^6/uL (4.00-5.40)
[2021-02-02 06:12] LABS: WHITE BLOOD COUNT 79.6 10^3/uL (4.0-10.0)
[2021-02-02 06:29] LABS: BLOOD UREA NITROGEN 38 MG/DL (7-18); CALCIUM LEVEL 8.6 MG/DL (8.8-10.2); CARBON DIOXIDE LEVEL 38 MEQ/L (21-32); CHLORIDE LEVEL 101 MEQ/L (98-107); GLOMERULAR FILTRATION RATE > 60.0 (>32); GLUCOSE, FASTING 101 MG/DL (70-100); POTASSIUM SERUM 4.7 MEQ/L (3.5-5.1); SODIUM LEVEL 140 MEQ/L (136-145)
[2021-02-02] MEDS ORDERED: VANCOMYCIN HCL 1,000 MG in IV FLUID PLACE HOLDER 1 EA IV SCH (06:50)
[2021-02-02] MEDS ORDERED: VANCOMYCIN HCL 1,000 MG, VIAL MATE ADAPTER 1 EACH in NS 250 ML IV ONE (07:00)
[2021-02-02 08:10] VITALS: BP 116/58
[2021-02-02] MEDS: PIPERACILLIN/TAZOBACTAM SOD 2.25 GM in D5W MINI-BAG PLUS 50 ML IV SCH ×2 (08:24→14:49)
[2021-02-02] MEDS: MULTIVITAMINS/MINERALS THERAP 1 TAB PO SCH (08:24)
[2021-02-02] MEDS: DIGOXIN 0.125 MG TAB PO SCH (08:25)
--- NOTE | 2021-02-02 08:36 | REP ---
INDICATION: hematuria. COMPARISON: Comparison CT study February 01, 2021.. TECHNIQUE: Transabdominal bladder sonography. FINDINGS: Visualized bladder almeida are smooth. Prevoid bladder volume is calculated at 254 mL. No bladder mass lesion is seen. Emptying ureteral jets were not observed during the examination. No extravesical lesion is seen. IMPRESSION: No morphologic abnormality noted. <Electronically signed by Wil Hernandez > 02/02/21 [id number]
[2021-02-02] MEDS ORDERED: FUROSEMIDE 40MG/4ML VIAL (J1940) IV SCH ×2 (09:00)
[2021-02-02] MEDS ORDERED: bisoproloL fumarate 5 MG TAB PO SCH (09:00)
[2021-02-02] MEDS ORDERED: FUROSEMIDE 20 MG TAB PO SCH (09:00)
[2021-02-02] MEDS ORDERED: BISOPROLOL FUM 2.5 MG PER 1/2TAB PO ONE (11:00)
[2021-02-02] MEDS: FUROSEMIDE 40MG/4ML VIAL (J1940) IV SCH ×3 (12:10→21:16)
[2021-02-02] MEDS: FERROUS SULFATE 325MG TAB PO SCH (12:10)
[2021-02-02 14:00] VITALS: BP 116/73
--- NOTE | 2021-02-02 19:54 | IPNPDOC ---
Date Seen The patient was seen on 02/02/21. Progress Note SUBJECTIVE: Not normally on O2, on 2 LNC. Hematuria persists, H/H stable. Discussed case with Dr. Caldwell, patient's adobe architect. Patient's end stage right heart failure, only medical management to help improve currently overloaded status. Beginning to aggressively diureses, watching BP. UA +, deescalated abx due to patient's chronic leukocytosis. She denies increased SOB, fevers, chills, n/v/d. OBJECTIVE: Physical exam: Vital signs: see below Gen: resting in bed, NAD. awake, alert, no acute distress HEENT: Extraocular movements intact, normal sclera, moist mucous membranes, NC in place NECK: + JVD Cardiovascular: Irregularly irregular, no murmurs rubs or gallops Lungs: Crackles in b/l lung fallon , no wheezing, rhonchi Abdomen: Soft, NT/ND, normal BS Musculoskeletal: normal range of motion Extremities: 3+ pitting in bilateral edema Neuro: CN 2-12 intact, no focal deficits Psych: Normal mood with congruent affect IMAGING: Bladder US: No morphologic abnormality noted. CXR: 1. Mild left lower lobe infiltrate. Suspicious for pneumonia. 2. Blunting of the left costophrenic angle. Consistent small effusion. CT abd/pelvis w/ contrast: 1. Cardiomegaly with the anasarca, ascites and dilated IVC. The findings suggest a congestive heart failure. 2. Splenomegaly. 3. Symmetric nephrograms noted of the kidneys. No hydronephrosis. 4. Bilateral benign renal cysts.No further workup recommended. 5. Moderate to large amount of stool in the colon. Last echocardiogram done in cardiology office 01/07/21: Ejection fraction 75% Moderate to severe pulmonary hypertension Severe tricuspid regurg Severe pulmonary regurg Moderate aortic valve sclerosis Mild concentric LVH ASSESSMENT/PLAN: Acute on chronic HFpEF with exacerbation -+2-3 pitting edema up to upper thigh, s/s of fluid overload, pleural effusion, + JVD -Elevated BNP 8K, previously 6900 early 01/2021 -Last echo from 01/07/21 above, discussed patient's case and echo in detail with her adobe architect Dr. Caldwell today -Trop neg -CXR: above -Started on lasix 40 mg IV Q4H, home BB -Monitor I&O's closely, 2gm sodium diet, daily wt, 1800 cc fluid restriction Shortness of breath, hypoxia r/o 2/2 to HFpEF with exacerbation (see above) or CAP -WBC always elevated with CLL, currently on 2 L NC- not on home O2 -CXR above -f/u procalcitonin, sputum culture, Blood cultures -D/c prior abx. C/w ceftriaxone, doxycycline for now UTI -WBC high, afebrile, denies dysuria, -UA +, Cx pending -Ceftriaxone Hematuria possibly 2/2 to UTI vs. Eliquis -Hematuria persists, decreased H/H only minimally -bladder US neg -Stopped eliquis on admission, c/w treatment for UTI -If hematuria persists, consider urology consult. Atrial fibrillation, chronic -HR controlled -C/w BB, holding eliquis Hx of CLL, chronic leukocytosis -Afebrile, does not appear infectious -Per chart review white count that ranges anywhere from 15-23 since 05/2015 -IGG ordered per oncologist- PENDING -Pt states she follows with Dr. Cruz PCP and rn concurrent review Dr. Isbell in [facility] -Request records after weekend. CKD stage III -Cr wnl -Daily labs, watch with diuresis Osteopenia -F/u o/p Hypertension -Stable -Watch closely with aggressive diuresis -C/w BB, lasix Q4H Hyperlipidemia -C/w home statin DVT ppx -Teds/scds, eliquis on hold due to hematuria DISPOSITION: C/w treatment above. Plan is discharge home when medically improved. VS, I&O, 24H, Fishbone Vital Signs/I&O Vital Signs Date Time Temp Pulse Resp B/P (MAP) Pulse Ox O2 Delivery O2 Flow Rate FiO2 02/02/21 14:00 97.6 109 19 116/73 (87) 97 Nasal Cannula 2.0 I&O- Last 24 Hours up to 6 AM 02/02/21 06:00 Intake Total 800 ml Output Total 100 ml Balance 700 ml Laboratory Data 24H LABS Laboratory Tests 2 02/01/21 20:18: Coronavirus (COVID-19)(PCR) NEGATIVE 02/02/21 00:24: Troponin I 0.04# 02/02/21 05:42: Troponin I 0.04, Nucleated Red Blood Cells % (auto) 0.0, Anion Gap 1L, Glomerular Filtration Rate > 60.0, Calcium Level 8.6L 02/02/21 07:00: Lactic Acid Level 1.3 02/02/21 12:29: Methicillin-Resist S.aureus DNA PCR NOT DETECTED CBC/BMP Laboratory Tests 02/02/21 05:42 Microbiology Microbiology 02/01/21 Urine Culture, Received Pending 02/01/21 Blood Culture, Received Pending 02/01/21 Blood Culture, Received Pending Current Medications Current Medications Medications (Trade) Dose Ordered Sig/Cameron Route PRN Reason Start Time Stop Time Status Last Admin Dose Admin Acetaminophen (Tylenol Tab) 650 mg Q4H PRN PO PAIN OR FEVER 02/01/21 22:30 Albuterol Sulfate (Proventil, Ventolin Hfa) 2 puff Q4HP PRN INH wheezing 02/01/21 22:35 Atorvastatin Calcium (Lipitor) 10 mg QHS PO 02/01/21 21:00 02/02/21 01:07 Bisoprolol Fumarate (Zebeta) 2.5 mg DAILY PO 02/02/21 09:00 02/02/21 10:43 DC 02/02/21 08:25 Bisoprolol Fumarate (Zebeta) 5 mg DAILY PO 02/03/21 09:00 Digoxin (Lanoxin) 0.125 mg DAILY PO 02/02/21 09:00 02/02/21 08:25 Ferrous Sulfate (Ferrous Sulfate) 325 mg Q48H PO 02/02/21 12:00 02/02/21 12:10 Furosemide (LASIX injection) 40 mg DAILY IV 02/02/21 09:00 02/02/21 10:43 DC 02/02/21 08:24 Furosemide (LASIX injection) 40 mg Q12H IV 02/02/21 00:00 02/01/21 23:10 DC Furosemide (LASIX injection) 40 mg Q4H IV 02/02/21 12:00 02/02/21 17:32 Furosemide (Lasix) 20 mg DAILY PO 02/02/21 09:00 02/01/21 22:37 DC Home Med (Med Rec Complete!) ASDIRECTED XX 02/01/21 20:05 02/01/21 20:06 DC Multivitamins (Theragram-M) 1 tab DAILY PO 02/02/21 09:00 02/02/21 08:24 Piperacillin Sod/ Tazobactam Sod 2.25 gm/Dextrose 50 ml @ 50 mls/hr Q6H IV 02/02/21 08:00 02/02/21 14:49 Sodium Chloride 1,000 ml @ 150 mls/hr Q6H40M IV 02/01/21 18:45 02/02/21 00:47 DC 02/01/21 19:45 Vancomycin HCl 750 mg/IV Miscellaneous Supplies 1 each/ Sodium Chloride 275 ml @ 275 mls/hr Q24H IV 02/03/21 08:00 Vancomycin HCl 1000 mg/IV Miscellaneous Supplies 20 ml @ 20 mls/hr Q12H IV 02/02/21 06:50 02/02/21 06:59 DC Allergies Coded Allergies: procaine (Verified Allergy, Mild, STUFFY NOSE, RUNNY EYES, 04/26/19) ENVIROMENTAL (Verified Allergy, Unknown, 04/26/19) Zaria López MD Feb 02, 2021 19:54
[2021-02-02] MEDS: cefTRIAXone SOD 1 GM in D5W MINI-BAG PLUS 50 ML IV SCH (21:15)
[2021-02-02] MEDS: DOXYCYCLINE HYCLATE 100MG TABLET PO SCH (21:15)
[2021-02-02 22:00] VITALS: BP 118/55
[2021-02-03] MEDS: FUROSEMIDE 40MG/4ML VIAL (J1940) IV SCH ×6 (00:48→20:00)
[2021-02-03 06:00] VITALS: BP 132/64
[2021-02-03 06:02] LABS: HEMATOCRIT 38.6 % (36.0-47.0); HEMOGLOBIN 11.2 g/dl (12.0-15.5); MEAN CORPUSCULAR HEMOGLOBIN 29.6 pg (27.0-33.0); MEAN CORPUSCULAR VOLUME 101.8 fl (80.0-96.0); PLATELET COUNT, AUTOMATED 117 10^3/uL (150-450); RED BLOOD COUNT 3.79 10^6/uL (4.00-5.40)
[2021-02-03 06:06] LABS: WHITE BLOOD COUNT 78.9 10^3/uL (4.0-10.0)
[2021-02-03 06:25] LABS: CALCIUM LEVEL 8.5 MG/DL (8.8-10.2); CREATININE FOR GFR 1.18 MG/DL (0.55-1.30); GLOMERULAR FILTRATION RATE 46.5 (>32); POTASSIUM SERUM 3.9 MEQ/L (3.5-5.1)
[2021-02-03] MEDS ORDERED: VANCOMYCIN HCL 750 MG, VIAL MATE ADAPTER 1 EACH in NS 250 ML IV SCH (08:00)
[2021-02-03] MEDS: MULTIVITAMINS/MINERALS THERAP 1 TAB PO SCH (08:33)
[2021-02-03] MEDS: DOXYCYCLINE HYCLATE 100MG TABLET PO SCH (08:33)
[2021-02-03] MEDS: DIGOXIN 0.125 MG TAB PO SCH (08:47)
[2021-02-03] MEDS: bisoproloL fumarate 5 MG TAB PO SCH (08:47)
[2021-02-03 14:00] VITALS: BP 101/50
--- NOTE | 2021-02-03 15:48 | IPNPDOC ---
Date Seen The patient was seen on 02/03/21. Progress Note SUBJECTIVE: Neg 3.5 Liters over past 48H, decreased lower ext edema but still +1 to upper thighs b/l. UCx + for E. coli, on ceftriaxone. Remains on 2 L NC. She denies increased SOB, fevers, chills, n/v/d. OBJECTIVE: Physical exam: Vital signs: see below Gen: resting in bed, NAD. awake, alert, no acute distress HEENT: Extraocular movements intact, normal sclera, moist mucous membranes, NC in place NECK: + JVD Cardiovascular: Irregularly irregular, no murmurs rubs or gallops Lungs: Crackles in b/l lung fallon , no wheezing, rhonchi Abdomen: Soft, NT/ND, normal BS Musculoskeletal: normal range of motion Extremities: 2+ pitting edema in b/l lower ext edema up to thighs- improving wi th diuresis Neuro: CN 2-12 intact, no focal deficits Psych: Normal mood with congruent affect LABORATORY: Please see below MICROBIOLOGY: UCx: E. coli Bcx NG x 2 sets at 24 H IMAGING: Bladder US: No morphologic abnormality noted. CXR: 1. Mild left lower lobe infiltrate. Suspicious for pneumonia. 2. Blunting of the left costophrenic angle. Consistent small effusion. CT abd/pelvis w/ contrast: 1. Cardiomegaly with the anasarca, ascites and dilated IVC. The findings suggest a congestive heart failure. 2. Splenomegaly. 3. Symmetric nephrograms noted of the kidneys. No hydronephrosis. 4. Bilateral benign renal cysts.No further workup recommended. 5. Moderate to large amount of stool in the colon. Last echocardiogram done in cardiology office 01/07/21: Ejection fraction 75% Moderate to severe pulmonary hypertension Severe tricuspid regurg Severe pulmonary regurg Moderate aortic valve sclerosis Mild concentric LVH ASSESSMENT/PLAN: Acute on chronic HFpEF with exacerbation -+2- pitting edema up to upper thigh- improving, s/s of fluid overload, pleural effusion, + JVD -Elevated BNP 8K, previously 6900 early 01/2021 -Last echo from 01/07/21 above, discussed patient's case and echo in detail with her belt builder helper Dr. Caldwell today -Trop neg -CXR: above -C/w lasix 40 mg IV Q4H, home BB -F/u BNP in AM -Monitor I&O's closely, 2gm sodium diet, daily wt, 1800 cc fluid restriction Shortness of breath, hypoxia r/o 2/2 to HFpEF with exacerbation (see above) , pleural effusion. -WBC always elevated with CLL, currently on 2 L NC- not on home O2 -CXR above -procalcitonin low so unlikely PNA -Micro above -C/w ceftriaxone only, d/c doxycycline today -Further attempt to wean off O2 in preparation for discharge E. coli UTI -WBC high, afebrile, denies dysuria -UA +, Cx above -Ceftriaxone Day 2 Hematuria possibly 2/2 to UTI vs. Eliquis -Hematuria resolved, H/H stable -bladder US neg -Stopped eliquis on admission and will keep off for now , c/w treatment for UTI Atrial fibrillation, chronic -HR controlled -C/w BB, holding eliquis Hx of CLL, chronic leukocytosis -Afebrile, does not appear infectious -Per chart review white count that ranges anywhere from 15-23 since 05/2015 -IGG ordered per oncologist -Pt states she follows with Dr. Cruz PCP and construction project mgr Dr. Isbell in [facility] -Request records after weekend. CKD stage III -Cr wnl -Daily labs, watch with diuresis Osteopenia -F/u o/p Hypertension -systolic 96-101, per belt builder helper this is near her normal -Watch closely with aggressive diuresis -C/w BB, lasix Q4H Hyperlipidemia -C/w home statin DVT ppx -Teds/scds, eliquis on hold due to hematuria DISPOSITION: C/w treatment above. Plan is discharge home when medically improved. VS, I&O, 24H, Fishbone Vital Signs/I&O Vital Signs Date Time Temp Pulse Resp B/P (MAP) Pulse Ox O2 Delivery O2 Flow Rate FiO2 02/03/21 14:00 98.1 70 16 101/50 (67) 94 Nasal Cannula 2.0 I&O- Last 24 Hours up to 6 AM 02/03/21 06:00 Intake Total 2260 ml Output Total 5025 ml Balance -2765 ml Laboratory Data 24H LABS Laboratory Tests 2 02/03/21 05:35: Nucleated Red Blood Cells % (auto) 0.0, Anion Gap 3L, Glomerular Filtration Rate 46.5, Calcium Level 8.5L CBC/BMP Laboratory Tests 02/03/21 05:35 Microbiology Microbiology 02/01/21 Urine Culture - Final, Complete Escherichia Coli 02/01/21 Blood Culture - Preliminary, Resulted No growth after 24 hours . All specim... 02/01/21 Blood Culture - Preliminary, Resulted No growth after 24 hours . All specim... Current Medications Current Medications Medications (Trade) Dose Ordered Sig/Cameron Route PRN Reason Start Time Stop Time Status Last Admin Dose Admin Acetaminophen (Tylenol Tab) 650 mg Q4H PRN PO PAIN OR FEVER 02/01/21 22:30 Albuterol Sulfate (Proventil, Ventolin Hfa) 2 puff Q4HP PRN INH wheezing 02/01/21 22:35 Atorvastatin Calcium (Lipitor) 10 mg QHS PO 02/01/21 21:00 02/02/21 21:15 Bisoprolol Fumarate (Zebeta) 2.5 mg DAILY PO 02/02/21 09:00 02/02/21 10:43 DC 02/02/21 08:25 Bisoprolol Fumarate (Zebeta) 5 mg DAILY PO 02/03/21 09:00 Ceftriaxone Sodium 1 gm/ Dextrose 50 ml @ 100 mls/hr Q24H IV 02/02/21 21:00 02/02/21 21:15 Digoxin (Lanoxin) 0.125 mg DAILY PO 02/02/21 09:00 02/03/21 08:47 Doxycycline Hyclate (Vibramycin) 100 mg BID PO 02/02/21 21:00 02/03/21 08:33 Ferrous Sulfate (Ferrous Sulfate) 325 mg Q48H PO 02/02/21 12:00 02/02/21 12:10 Furosemide (LASIX injection) 40 mg DAILY IV 02/02/21 09:00 02/02/21 10:43 DC 02/02/21 08:24 Furosemide (LASIX injection) 40 mg Q12H IV 02/02/21 00:00 02/01/21 23:10 DC Furosemide (LASIX injection) 40 mg Q4H IV 02/02/21 12:00 02/03/21 04:52 Furosemide (Lasix) 20 mg DAILY PO 02/02/21 09:00 02/01/21 22:37 DC Home Med (Med Rec Complete!) ASDIRECTED XX 02/01/21 20:05 02/01/21 20:06 DC Multivitamins (Theragram-M) 1 tab DAILY PO 02/02/21 09:00 02/03/21 08:33 Piperacillin Sod/ Tazobactam Sod 2.25 gm/Dextrose 50 ml @ 50 mls/hr Q6H IV 02/02/21 08:00 02/02/21 19:35 DC 02/02/21 14:49 Sodium Chloride 1,000 ml @ 150 mls/hr Q6H40M IV 02/01/21 18:45 02/02/21 00:47 DC 02/01/21 19:45 Vancomycin HCl 750 mg/IV Miscellaneous Supplies 1 each/ Sodium Chloride 275 ml @ 275 mls/hr Q24H IV 02/03/21 08:00 02/02/21 19:35 DC Vancomycin HCl 1000 mg/IV Miscellaneous Supplies 20 ml @ 20 mls/hr Q12H IV 02/02/21 06:50 02/02/21 06:59 DC Allergies Coded Allergies: procaine (Verified Allergy, Mild, STUFFY NOSE, RUNNY EYES, 04/26/19) ENVIROMENTAL (Verified Allergy, Unknown, 04/26/19) Zaria López MD Feb 03, 2021 15:48
[2021-02-03] MEDS: ATORVASTATIN 10 MG TAB PO SCH (21:05)
[2021-02-03] MEDS: cefTRIAXone SOD 1 GM in D5W MINI-BAG PLUS 50 ML IV SCH (21:05)
[2021-02-03 22:00] VITALS: BP 110/48
[2021-02-04] MEDS: FUROSEMIDE 40MG/4ML VIAL (J1940) IV SCH ×3 (00:38→08:00)
[2021-02-04 06:00] VITALS: BP 113/53
[2021-02-04 06:17] LABS: HEMOGLOBIN 10.2 g/dl (12.0-15.5); MEAN CORPUSCULAR HEMOGLOBIN 29.8 pg (27.0-33.0); MEAN CORPUSCULAR HGB CONC 29.1 g/dl (32.0-36.5); MEAN CORPUSCULAR VOLUME 102.3 fl (80.0-96.0); PLATELET COUNT, AUTOMATED 109 10^3/uL (150-450); RED BLOOD COUNT 3.42 10^6/uL (4.00-5.40)
[2021-02-04 06:22] LABS: WHITE BLOOD COUNT 76.5 10^3/uL (4.0-10.0)
[2021-02-04 06:47] LABS: BLOOD UREA NITROGEN 28 MG/DL (7-18); CALCIUM LEVEL 8.6 MG/DL (8.8-10.2); CHLORIDE LEVEL 88 MEQ/L (98-107); CREATININE FOR GFR 0.83 MG/DL (0.55-1.30); GLOMERULAR FILTRATION RATE > 60.0 (>32); GLUCOSE, FASTING 94 MG/DL (70-100); POTASSIUM SERUM 3.4 MEQ/L (3.5-5.1); SODIUM LEVEL 136 MEQ/L (136-145)
[2021-02-04 06:48] LABS: CARBON DIOXIDE LEVEL 57 MEQ/L (21-32)
[2021-02-04] MEDS: MULTIVITAMINS/MINERALS THERAP 1 TAB PO SCH (08:28)
[2021-02-04] MEDS: bisoproloL fumarate 5 MG TAB PO SCH (08:30)
[2021-02-04] MEDS: DIGOXIN 0.125 MG TAB PO SCH (08:30)
[2021-02-04] MEDS ORDERED: LevoFLOXacin 500 MG TABLET PO ONE (09:00)
[2021-02-04] MEDS: FERROUS SULFATE 325MG TAB PO SCH (11:33)
[2021-02-04 14:00] VITALS: BP 106/57
--- NOTE | 2021-02-04 15:17 | IPNPDOC ---
Date Seen The patient was seen on 02/04/21. Progress Note SUBJECTIVE: Net neg, blurry vision today. Stopped diuresis, much improved lower ext edema. Changed to levofloxacin. Weaning off O2 further today. She denies increased SOB, fevers, chills, n/v/d. OBJECTIVE: Physical exam: Vital signs: see below Gen: resting in bed, NAD. awake, alert, no acute distress HEENT: Extraocular movements intact, normal sclera, moist mucous membranes, NC in place NECK: + JVD Cardiovascular: Irregularly irregular, no murmurs rubs or gallops Lungs: Crackles in b/l lung fallon , no wheezing, rhonchi Abdomen: Soft, NT/ND, normal BS Musculoskeletal: normal range of motion Extremities: 1+ pitting edema in b/l lower ext edema up to thighs- improved Neuro: CN 2-12 intact, no focal deficits Psych: Normal mood with congruent affect LABORATORY: Please see below MICROBIOLOGY: UCx: E. coli Bcx NG x 2 sets at 24 H IMAGING: Bladder US: No morphologic abnormality noted. CXR: 1. Mild left lower lobe infiltrate. Suspicious for pneumonia. 2. Blunting of the left costophrenic angle. Consistent small effusion. CT abd/pelvis w/ contrast: 1. Cardiomegaly with the anasarca, ascites and dilated IVC. The findings suggest a congestive heart failure. 2. Splenomegaly. 3. Symmetric nephrograms noted of the kidneys. No hydronephrosis. 4. Bilateral benign renal cysts.No further workup recommended. 5. Moderate to large amount of stool in the colon. Last echocardiogram done in cardiology office 01/07/21: Ejection fraction 75% Moderate to severe pulmonary hypertension Severe tricuspid regurg Severe pulmonary regurg Moderate aortic valve sclerosis Mild concentric LVH ASSESSMENT/PLAN: Acute on chronic HFpEF with exacerbation -+1 pitting edema to upper thigh-much improved, s/s of fluid overload, pleural effusion, + JVD -Elevated BNP 8K, previously 6900 early 01/2021 -Last echo from 01/07/21 above, discussed patient's case and echo in detail with her cotton candy maker Dr. Caldwell today -Trop neg -CXR: above -Stopped lasix today due to blurry vision, contraction alkalosis. C/w home BB -Monitor I&O's closely, 2gm sodium diet, daily wt, 1800 cc fluid restriction Shortness of breath, hypoxia r/o 2/2 to HFpEF with exacerbation (see above) , p leural effusion. -WBC always elevated with CLL, currently on 2 L NC- not on home O2 -CXR above -procalcitonin low so unlikely PNA -Micro above -Further attempt to wean off O2 in preparation for discharge E. coli UTI -WBC high, afebrile, denies dysuria -UA +, Cx above -On levofloxacin PO Atrial fibrillation, chronic -HR controlled -C/w BB, holding eliquis Hx of CLL, chronic leukocytosis -Afebrile, does not appear infectious -Per chart review white count that ranges anywhere from 15-23 since 05/2015 -Pt states she follows with Dr. Cruz PCP and rectifying operator Dr. Isbell in [facility] -Requested records CKD stage III -Cr wnl -Daily labs, watch with diuresis Osteopenia -F/u o/p Hypertension -systolic 100-115, per cotton candy maker this is near her normal -C/w BB, holding lasix Hyperlipidemia -C/w home statin DVT ppx -Teds/scds, eliquis on hold due to hematuria Resolved: Hematuria possibly 2/2 to UTI vs. Eliquis DISPOSITION: C/w treatment above. Plan is discharge home when medically improved. VS, I&O, 24H, Fishbone Vital Signs/I&O Vital Signs Date Time Temp Pulse Resp B/P (MAP) Pulse Ox O2 Delivery O2 Flow Rate FiO2 02/04/21 09:00 2.0 02/04/21 08:30 70 105/56 02/04/21 06:00 98.0 20 96 Nasal Cannula I&O- Last 24 Hours up to 6 AM 02/04/21 06:00 Intake Total 640 ml Output Total 1800 ml Balance -1160 ml Laboratory Data 24H LABS Laboratory Tests 2 02/04/21 05:16: Nucleated Red Blood Cells % (auto) 0.0, Anion Gap , Glomerular Filtration Rate > 60.0, Calcium Level 8.6L CBC/BMP Laboratory Tests 02/04/21 05:16 Microbiology Microbiology 02/01/21 Urine Culture - Final, Complete Escherichia Coli 02/01/21 Blood Culture - Preliminary, Resulted No Growth after 48 hours. All Specime... 02/01/21 Blood Culture - Preliminary, Resulted No Growth after 48 hours. All Specime... Current Medications Current Medications Medications (Trade) Dose Ordered Sig/Cameron Route PRN Reason Start Time Stop Time Status Last Admin Dose Admin Acetaminophen (Tylenol Tab) 650 mg Q4H PRN PO PAIN OR FEVER 02/01/21 22:30 Albuterol Sulfate (Proventil, Ventolin Hfa) 2 puff Q4HP PRN INH wheezing 02/01/21 22:35 Atorvastatin Calcium (Lipitor) 10 mg QHS PO 02/01/21 21:00 02/03/21 21:05 Bisoprolol Fumarate (Zebeta) 2.5 mg DAILY PO 02/02/21 09:00 02/02/21 10:43 DC 02/02/21 08:25 Bisoprolol Fumarate (Zebeta) 5 mg DAILY PO 02/03/21 09:00 02/04/21 08:30 Ceftriaxone Sodium 1 gm/ Dextrose 50 ml @ 100 mls/hr Q24H IV 02/02/21 21:00 02/04/21 08:37 DC 02/03/21 21:05 Digoxin (Lanoxin) 0.125 mg DAILY PO 02/02/21 09:00 02/04/21 08:30 Doxycycline Hyclate (Vibramycin) 100 mg BID PO 02/02/21 21:00 02/03/21 15:41 DC 02/03/21 08:33 Ferrous Sulfate (Ferrous Sulfate) 325 mg Q48H PO 02/02/21 12:00 02/04/21 11:33 Furosemide (LASIX injection) 40 mg DAILY IV 02/02/21 09:00 02/02/21 10:43 DC 02/02/21 08:24 Furosemide (LASIX injection) 40 mg Q12H IV 02/02/21 00:00 02/01/21 23:10 DC Furosemide (LASIX injection) 40 mg Q4H IV 02/02/21 12:00 02/04/21 08:35 DC 02/04/21 05:16 Furosemide (LASIX injection) 60 mg DAILY IV 02/05/21 09:00 Furosemide (Lasix) 20 mg DAILY PO 02/02/21 09:00 02/01/21 22:37 DC Home Med (Med Rec Complete!) ASDIRECTED XX 02/01/21 20:05 02/01/21 20:06 DC Levofloxacin (Levaquin) 250 mg DAILY@06 PO 02/05/21 06:00 Multivitamins (Theragram-M) 1 tab DAILY PO 02/02/21 09:00 02/04/21 08:28 Piperacillin Sod/ Tazobactam Sod 2.25 gm/Dextrose 50 ml @ 50 mls/hr Q6H IV 02/02/21 08:00 02/02/21 19:35 DC 02/02/21 14:49 Sodium Chloride 1,000 ml @ 150 mls/hr Q6H40M IV 02/01/21 18:45 02/02/21 00:47 DC 02/01/21 19:45 Vancomycin HCl 750 mg/IV Miscellaneous Supplies 1 each/ Sodium Chloride 275 ml @ 275 mls/hr Q24H IV 02/03/21 08:00 02/02/21 19:35 DC Vancomycin HCl 1000 mg/IV Miscellaneous Supplies 20 ml @ 20 mls/hr Q12H IV 02/02/21 06:50 02/02/21 06:59 DC Allergies Coded Allergies: procaine (Verified Allergy, Mild, STUFFY NOSE, RUNNY EYES, 04/26/19) ENVIROMENTAL (Verified Allergy, Unknown, 04/26/19) Zaria López MD Feb 04, 2021 15:17
[2021-02-04] MEDS: ATORVASTATIN 10 MG TAB PO SCH (20:21)
[2021-02-04 22:00] VITALS: BP 105/55
[2021-02-05 06:00] VITALS: BP 104/49
[2021-02-05] MEDS ORDERED: LevoFLOXacin 250 MG TABLET PO SCH (06:00)
[2021-02-05 06:12] LABS: HEMATOCRIT 34.7 % (36.0-47.0); HEMOGLOBIN 10.4 g/dl (12.0-15.5); MEAN CORPUSCULAR HEMOGLOBIN 29.3 pg (27.0-33.0); MEAN CORPUSCULAR VOLUME 97.7 fl (80.0-96.0); PLATELET COUNT, AUTOMATED 112 10^3/uL (150-450); RED BLOOD COUNT 3.55 10^6/uL (4.00-5.40)
[2021-02-05 06:18] LABS: WHITE BLOOD COUNT 87.1 10^3/uL (4.0-10.0)
[2021-02-05 06:55] LABS: BLOOD UREA NITROGEN 26 MG/DL (7-18); CALCIUM LEVEL 8.7 MG/DL (8.8-10.2); CARBON DIOXIDE LEVEL 44 MEQ/L (21-32); CHLORIDE LEVEL 85 MEQ/L (98-107); CREATININE FOR GFR 0.78 MG/DL (0.55-1.30); GLOMERULAR FILTRATION RATE > 60.0 (>32); GLUCOSE, FASTING 102 MG/DL (70-100); POTASSIUM SERUM 3.6 MEQ/L (3.5-5.1); SODIUM LEVEL 133 MEQ/L (136-145)
[2021-02-05 08:30] VITALS: BP 107/48
[2021-02-05] MEDS: DIGOXIN 0.125 MG TAB PO SCH (08:30)
[2021-02-05] MEDS: bisoproloL fumarate 5 MG TAB PO SCH (08:30)
[2021-02-05] MEDS: MULTIVITAMINS/MINERALS THERAP 1 TAB PO SCH (08:31)
[2021-02-05] MEDS ORDERED: FUROSEMIDE 100MG/10ML VIAL (J1940) IV SCH ×2 (09:00)
[2021-02-05] MEDS ORDERED: LEVO250T12 PO (14:21)
--- NOTE | 2021-02-05 19:38 | DS.PDOC ---
Discharge Summary General Date of Admission Feb 01, 2021 at 21:39 Date of Discharge 02/05/21 Attending Physician: Zaria López MD Discharge Summary HPI: This is a 80-year-old elderly female past medical history significant for hypertension, A. fib with RVR on eliquis, hyperlipidemia, dry eyes, chronic leukocytosis with the probable diagnosis of CLL ,who presents to [facility] ER after she was sent from her primary care's office for blood and urine. Patient states that she's had right flank pain with gross hematuria 1 week. She denies dysuria or increase in urination, afebrile. In the ER, UA shows 3+ blood, CT abdomen/pelvis without followed by with contrast shows no renal, ureteral or bladder stones, no hydronephrosis or hydroureter. It does show that she has moderate cardiomegaly with ascites and anasarca, likely secondary to acute on chronic CHF exacerbation. Patient denies any chest pain, fever, chills, abdominal pain, nausea, vomiting, diarrhea. Patient does say that she has gained a few pounds in the past week or so and has been a bit more short of breath. HOSPITAL COURSE: Patient was treated for acute on chronic HFpEF with exacerbation, -+1 pitting edema to upper thighs. After aggressive diuresis, s/s of fluid overload, lower ext edema, pleural effusion, + JVD also improved. Her case was discussed wit her special collections librarian Dr. Caldwell, last echo from 01/07/21 showed end stage RHF, preserved EF. We diuresed with lasix 40 mg IV Q4 for several days, maintaining neg fluid balance. Trop neg. We later stopped lasix today due to blurry vision, contraction alkalosis which also improved with time. By 02/05/21 patient had no pitting lower ext edema and felt much improved. She had persistent hypoxia with ambulation likely 2/2 to HFpEF with exacerbation (see above) , pleural effusion. She told me she was told that she has a lower than normal O2 sat; however, she dropped to low 80's with ambulation. Procalcitonin low so unlikely PNA. Further attempts to wean off O2 in preparation for discharge were unsuccessful. Decision was made to discharge with home O2 for hypoxia with activity, she required 3 L NC to maintain O2 sats > 88%. She needed no O2 at rest. For E. coli UTI she was treated with levofloxacin. WBC was elevated; however, with CLL this is normal. Other chronic issues remained stable. On 02/05/21 discharge was initiated. She will need to f/u with PCP, cardiology. Past Medical History: Hypertension, A. fib with RVR on eliquis, hyperlipidemia, dry eyes, chronic leukocytosis with a probable diagnosis of CLL Past surgical history: Appendectomy Family history: Coronary artery disease, MIs, CVAs, hypertension Social history: Patient denies any tobacco use. She drinks an occasional drink of alcohol. Her son lives with her Thursday through Thursday, but on the weekends, she lives alone. DISCHARGE MEDS: Please see below Physical exam: Vital signs: see below Gen: resting in bed, NAD. awake, alert, no acute distress HEENT: Extraocular movements intact, normal sclera, moist mucous membranes, NC in place NECK: + JVD Cardiovascular: Irregularly irregular, no murmurs rubs or gallops Lungs: Crackles in b/l lung fallon , no wheezing, rhonchi Abdomen: Soft, NT/ND, normal BS Musculoskeletal: normal range of motion Extremities: nonpitting edema in b/l lower ext, no thigh edema today Neuro: CN 2-12 intact, no focal deficits Psych: mood and affect appropriate LABORATORY: Please see below MICROBIOLOGY: UCx: E. coli Bcx NG x 2 sets at 24 H IMAGING: Bladder US: No morphologic abnormality noted. CXR: 1. Mild left lower lobe infiltrate. Suspicious for pneumonia. 2. Blunting of the left costophrenic angle. Consistent small effusion. CT abd/pelvis w/ contrast: 1. Cardiomegaly with the anasarca, ascites and dilated IVC. The findings suggest a congestive heart failure. 2. Splenomegaly. 3. Symmetric nephrograms noted of the kidneys. No hydronephrosis. 4. Bilateral benign renal cysts.No further workup recommended. 5. Moderate to large amount of stool in the colon. Last echocardiogram done in cardiology office 01/07/21: Ejection fraction 75% Moderate to severe pulmonary hypertension Severe tricuspid regurg Severe pulmonary regurg Moderate aortic valve sclerosis Mild concentric LVH ASSESSMENT/PLAN: Acute on chronic HFpEF with exacerbation -Improved lower ext edema, JVD -Requiring O2 with ambulation; however, likely needed prior -Elevated BNP 8K, previously 6900 early 01/2021 -Last echo from 01/07/21 above, discussed patient's case and echo in detail with her special collections librarian Dr. Caldwell today -Trop neg -CXR: above -She is to continue with home medications, f/u with cardiology Shortness of breath, hypoxia r/o 2/2 to HFpEF with exacerbation (see above) , pleural effusion. -WBC always elevated with CLL. 3 L NC needed with ambulation, none with rest -CXR above -procalcitonin low so unlikely PNA -Micro above -Further attempts to wean off O2 in preparation for discharge failed -Home with o2 E. coli UTI -WBC high, afebrile, denies dysuria -UA +, Cx above -C/w levofloxacin PO x 5 days Atrial fibrillation, chronic -HR controlled -C/w BB, holding eliquis for several days to resume at 02/08/21. Hx of CLL, chronic leukocytosis -Afebrile, does not appear infectious -Per chart review white count that ranges anywhere from 15-23 since 05/2015 -Pt states she follows with Dr. Cruz PCP and steam table worker Dr. Isbell in [facility], [place] -Requested records CKD stage III -Cr wnl -Daily labs, watch with diuresis Osteopenia -F/u o/p Hypertension -systolic 100-115, per special collections librarian this is near her normal -C/w BB, lasix Hyperlipidemia -C/w home statin DVT ppx -Eliquis to restart on 02/08/21 Resolved: Hematuria possibly 2/2 to UTI vs. Eliquis DISPOSITION: Discharge home to f/u with PCP, cardiology . Eliquis to restart on 02/08/21 but if she has reoccurence of hematuria, she should stop it and be evaluated. TIME SPENT ON DISCHARGE: 35 minutes. Vital Signs/I&Os Vital Signs Date Time Temp Pulse Resp B/P (MAP) Pulse Ox O2 Delivery O2 Flow Rate FiO2 02/05/21 11:32 95 92 Nasal Cannula 3.0 02/05/21 08:30 107/48 02/05/21 06:00 98.1 18 I&O- Last 24 Hours up to 6 AM 02/05/21 06:00 Intake Total 940 ml Output Total 1175 ml Balance -235 ml Laboratory Data Labs 24H Laboratory Tests 2 02/05/21 05:50: Nucleated Red Blood Cells % (auto) 0.0, Anion Gap 4L, Glomerular Filtration Rate > 60.0, Calcium Level 8.7L CBC/BMP Laboratory Tests 02/05/21 05:50 Microbiology Microbiology 02/01/21 Urine Culture - Final, Complete Escherichia Coli 02/01/21 Blood Culture - Preliminary, Resulted No Growth after 72 hours. All specime... 02/01/21 Blood Culture - Preliminary, Resulted No Growth after 72 hours. All specime... Discharge Medications Scheduled Apixaban (Eliquis) 2.5 Mg Tablet, 2.5 MG PO BID, (Reported) Atorvastatin Calcium (Atorvastatin Calcium) 10 Mg Tablet, 10 MG PO QHS, (Reported) Bisoprolol Fumarate (Bisoprolol Fumarate) 5 Mg Tablet, 5 MG PO DAILY, (Reported) Digoxin (Digoxin) 125 Mcg Tablet, 125 MCG PO DAILY, (Reported) Ferrous Sulfate (Ferrous Sulfate) 325 Mg Tablet.dr, 325 MG PO Q2D, (Reported) lunch Furosemide (Furosemide) 20 Mg Tablet, 20 MG PO DAILY, (Reported) Lactobacillus Acidophilus (Probiotic) 1 Each Capsule, 1 CAP PO Q2D, (Reported) lunch Levofloxacin (Levofloxacin) 250 Mg Tablet, 250 MG PO DAILY@06 Multivitamins (Thera M Plus Tablet) 1 Tab Tab, 1 TAB PO DAILY, (Reported) Scheduled PRN Albuterol Sulfate (Ventolin Hfa) 18 Gm Hfa.aer.ad, 2 PUFF INH Q4-6HP PRN for wheezing, (Reported) Allergies Coded Allergies: procaine (Verified Allergy, Mild, STUFFY NOSE, RUNNY EYES, 04/26/19) ENVIROMENTAL (Verified Allergy, Unknown, 04/26/19) Zaria López MD Feb 05, 2021 19:38
[2021-02-06] MEDS ORDERED: FUROSEMIDE 40MG/4ML VIAL (J1940) IV SCH (09:00)
== END 2021-02-05 16:33 | disposition home health service (06) | DRG 291 ==
LOC: M ED 16:35 → M ED INP 21:39 → M MSPAV 02-02 00:38
PROVIDERS: ADMIT Internal Medicine; ATTEND Internal Medicine
DX: I13.0 Hypertensive heart and chronic kidney disease with heart failure and stage 1 through stage 4 chronic kidney disease, or unspecified chronic kidney disease (principal); I50.33 Acute on chronic diastolic (congestive) heart failure; N39.0 Urinary tract infection, site not specified; J90 Pleural effusion, not elsewhere classified; I48.20 Chronic atrial fibrillation, unspecified; N18.30 Chronic kidney disease, stage 3 unspecified; B96.20 Unspecified Escherichia coli [E. coli] as the cause of diseases classified elsewhere; R31.9 Hematuria, unspecified; R06.02 Shortness of breath; Z79.01 Long term (current) use of anticoagulants; D72.829 Elevated white blood cell count, unspecified; M85.80 Other specified disorders of bone density and structure, unspecified site; E78.5 Hyperlipidemia, unspecified; M62.84 Sarcopenia; H04.123 Dry eye syndrome of bilateral lacrimal glands; Z79.899 Other long term (current) drug therapy; R09.02 Hypoxemia; Z88.4 Allergy status to anesthetic agent; Z20.822 Contact with and (suspected) exposure to COVID-19

== ENCOUNTER → 2021-02-01 | Outpatient (REF) | payer MEDICARE ==
[~2021-02-01] MED LIST changes: -ATOR1TAB19; +ATOR1TAB19 PO; -DIGO0.123; +DIGO0.123 PO; +VENTAER INH
[2021-02-01 14:50] LABS: BASO # 0.1 10^3/uL (0.0-0.2); BASO % 0.1 % (0.0-1.0); EOS # 0.2 10^3/uL (0.0-0.5); EOS % 0.2 % (0.0-3.0); HEMATOCRIT 39.9 % (36.0-47.0); HEMOGLOBIN 11.6 g/dl (12.0-15.5); LYMPH # 76.9 10^3/uL (1.5-5.0); LYMPH % 93.1 % (24.0-44.0); MEAN CORPUSCULAR HEMOGLOBIN 29.3 pg (27.0-33.0); MEAN CORPUSCULAR HGB CONC 29.1 g/dl (32.0-36.5); MEAN CORPUSCULAR VOLUME 100.8 fl (80.0-96.0); MONO # 1.2 10^3/uL (0.0-0.8); MONO % 1.4 % (2.0-8.0); NEUTROPHILS # 4.2 10^3/uL (1.5-8.5); NEUTROPHILS % 5.1 % (36.0-66.0); PLATELET COUNT, AUTOMATED 118 10^3/uL (150-450); RED BLOOD COUNT 3.96 10^6/uL (4.00-5.40)
[2021-02-01 14:57] LABS: WHITE BLOOD COUNT 82.6 10^3/uL (4.0-10.0)
[2021-02-01 15:21] LABS: ALBUMIN 3.6 GM/DL (3.2-5.2); BILIRUBIN,TOTAL 0.6 MG/DL (0.2-1.0); C REACTIVE PROTEIN QUANTITATIV 0.44 MG/DL (0.00-0.30); CALCIUM LEVEL 9.4 MG/DL (8.8-10.2); CREATININE FOR GFR 1.13 MG/DL (0.55-1.30); GLOMERULAR FILTRATION RATE 48.8 (>32); POTASSIUM SERUM 4.4 MEQ/L (3.5-5.1); TOTAL PROTEIN 6.8 GM/DL (6.4-8.2); TROPONIN I 0.03 NG/ML (< 0.10)
[2021-02-01 15:50] LABS: ERYTHROCYTE SEDIMENTATION RATE 23 mm/hr (0-30)
== END ==
LOC: M SFHCPLAZ 13:47
PROVIDERS: ATTEND Physician Assistant
DX: R31.9 Hematuria, unspecified (principal); R06.02 Shortness of breath; I50.30 Unspecified diastolic (congestive) heart failure

== ENCOUNTER → 2021-02-26 | Outpatient (REF) | payer MEDICARE ==
[~2021-02-26] MED LIST changes: +LEVO250T12 PO; +VENTAER INH
[2021-02-26 15:09] LABS: ALBUMIN 3.8 GM/DL (3.2-5.2); BILIRUBIN,TOTAL 0.5 MG/DL (0.2-1.0); CALCIUM LEVEL 9.5 MG/DL (8.8-10.2); CREATININE FOR GFR 0.99 MG/DL (0.55-1.30); GLOMERULAR FILTRATION RATE 56.9 (>32); MAGNESIUM LEVEL 2.4 MG/DL (1.8-2.4); POTASSIUM SERUM 4.1 MEQ/L (3.5-5.1)
== END ==
LOC: M PLALAB 09:55
PROVIDERS: ATTEND Internal Medicine
DX: I50.30 Unspecified diastolic (congestive) heart failure (principal); I11.0 Hypertensive heart disease with heart failure; Z11.59 Encounter for screening for other viral diseases
CPT/HCPCS: 36415; 80053; 83735; 83880; G0472

== ENCOUNTER → 2021-03-20 | Outpatient (REF) | payer MEDICARE ==
[2021-03-20 16:22] LABS: BLOOD UREA NITROGEN 30 MG/DL (7-18); CALCIUM LEVEL 9.1 MG/DL (8.8-10.2); CARBON DIOXIDE LEVEL 38 MEQ/L (21-32); CHLORIDE LEVEL 97 MEQ/L (98-107); CREATININE FOR GFR 0.94 MG/DL (0.55-1.30); GLOMERULAR FILTRATION RATE > 60.0 (>32); GLUCOSE, FASTING 82 MG/DL (70-100); MAGNESIUM LEVEL 2.3 MG/DL (1.8-2.4); NT-PRO BNP 5646 PG/ML (<450); POTASSIUM SERUM 4.3 MEQ/L (3.5-5.1); SODIUM LEVEL 137 MEQ/L (136-145)
== END ==
LOC: M SFHCPLAZ 13:25
PROVIDERS: ATTEND Internal Medicine
DX: I50.30 Unspecified diastolic (congestive) heart failure (principal); I11.0 Hypertensive heart disease with heart failure

== ENCOUNTER → 2021-06-03 | Outpatient (CLI) | payer MEDICARE ==
--- NOTE | 2021-06-03 11:59 | REP ---
INDICATION: WHEEZING, SHORTNESS OF BREATH. COMPARISON: Multiple the latest 02/02/2021 go technique PA and lateral FINDINGS: There is cardiomegaly and chronic fibrotic change throughout the lung fallon status quo. There is lung field hyperexpansion status quo. No acute patchy parenchymal opacities or pleural effusions have developed. There is no significant change in appearance of the osseous structures. IMPRESSION: Chronic changes as described above without evidence of acute cardiopulmonary disease. Correlate clinically to rule out the possibility of acute disease superimposed upon chronic change. <Electronically signed by Osbaldo Tobin > 06/03/21 [id number]
== END ==
LOC: M WUC 11:34
PROVIDERS: ATTEND Nurse Practitioner Family
DX: R06.2 Wheezing (principal); R91.8 Other nonspecific abnormal finding of lung field; I51.7 Cardiomegaly

== ENCOUNTER → 2021-06-26 | Outpatient (CLI) | payer MEDICARE ==
--- NOTE | 2021-06-26 13:31 | REP ---
INDICATION: SOB COMPARISON: None. TECHNIQUE: Standard helical technique without intravenous contrast administration FINDINGS: Limited evaluation of the mediastinum and pulmonary ramona show no evidence of a mass or adenopathy. There is ascending aortic ectasia with a maximal AP dimension of 4.2 cm seen in limited fashion on this noncontrast enhanced exam. There are no pleural or pericardial effusions. The imaged upper abdomen shows possible splenomegaly and an incompletely imaged possible right renal cyst. The left kidney is partially imaged. Resides antro superior. Bone window technique throughout the examination shows thoracic kyphosis and bony demineralization with spinal degenerative changes and a grade 3 T3 compression fracture the age of which cannot be determined by this exam. Evaluation of the lung fallon shows lung field hyperexpansion and emphysematous changes. There is a calcified granuloma in the right upper lobe. There is a 1 cm sized ground-glass nodule in the right upper lobe. Thick bibasilar curvilinear densities are present. There is a right lower lobe pleural based density which measures 3 cm in its greatest dimension. There is cylindrical bronchiectasis. IMPRESSION: 1. There is a 1 cm sized ground-glass nodule in the right upper lobe. There are no priors comparison. Lung rads category 4A. Three-month follow-up is warranted. 2. Chronic lung field changes as described above with bibasilar asymmetric densities and right lower lobe pleural based density as described above. Consider PET-CT at this time since are no priors comparison. 3. Findings involving the imaged upper abdomen which do not appear to be significantly changed compared to the CT examination of the abdomen and pelvis which was obtained 02/01/2021. All interested parties should review the prior report from that CT. 4. Age undetermined T3 grade 3 compression fracture with other osseous changes as described above. 5. Other findings as described above. <Electronically signed by Osbaldo Tobin > 06/26/21 [id number]
== END ==
LOC: M PLAIMG 12:39
PROVIDERS: ATTEND Internal Medicine Pulmonary Disease
DX: R06.02 Shortness of breath (principal)

== ENCOUNTER → 2021-10-07 | Outpatient (CLI) | payer MEDICARE ==
[~2021-10-07] MED LIST changes: -LEVO250T12 PO; +LEVO250T3 PO
== END ==
LOC: M RAD 13:32
PROVIDERS: ATTEND Internal Medicine Pulmonary Disease
DX: R91.1 Solitary pulmonary nodule (principal); R59.0 Localized enlarged lymph nodes

== ENCOUNTER → 2021-11-07 | Outpatient (CLI) | payer MEDICARE ==
[~2021-11-07] MED LIST changes: +LEVO250T12 PO; -LEVO250T3 PO
[2021-11-07 14:08] LABS: ALBUMIN 3.8 GM/DL (3.2-5.2); BILIRUBIN,DIRECT 0.2 MG/DL (0.0-0.2); BILIRUBIN,TOTAL 0.4 MG/DL (0.2-1.0); CALCIUM LEVEL 9.7 MG/DL (8.8-10.2); CREATININE FOR GFR 0.98 MG/DL (0.55-1.30); GLOMERULAR FILTRATION RATE 57.6 (>32); PHOSPHORUS LEVEL 3.6 MG/DL (2.5-4.9)
== END ==
LOC: M PLALAB 10:38
PROVIDERS: ATTEND Internal Medicine Cardiovascular Disease
DX: I50.32 Chronic diastolic (congestive) heart failure (principal)

== ENCOUNTER → 2022-01-28 | Outpatient (CLI) | payer MEDICARE ==
[~2022-01-28] MED LIST changes: -LEVO250T12 PO; +LEVO250T3 PO
[2022-01-28 18:12] LABS: HEMATOCRIT 40.8 % (36.0-47.0); HEMOGLOBIN 11.8 g/dl (12.0-15.5); MEAN CORPUSCULAR HEMOGLOBIN 27.7 pg (27.0-33.0); MEAN CORPUSCULAR HGB CONC 28.9 g/dl (32.0-36.5); MEAN CORPUSCULAR VOLUME 95.8 fl (80.0-96.0); PLATELET COUNT, AUTOMATED 225 10^3/uL (150-450); RED BLOOD COUNT 4.26 10^6/uL (4.00-5.40)
[2022-01-28 18:37] LABS: ALBUMIN 3.4 GM/DL (3.2-5.2); BILIRUBIN,TOTAL 0.5 MG/DL (0.2-1.0); CALCIUM LEVEL 9.9 MG/DL (8.8-10.2); CREATININE FOR GFR 1.04 MG/DL (0.55-1.30); GLOMERULAR FILTRATION RATE 53.6 (>32); POTASSIUM SERUM 5.3 MEQ/L (3.5-5.1); TOTAL PROTEIN 7.5 GM/DL (6.4-8.2)
[2022-01-28 19:36] LABS: WHITE BLOOD COUNT 112.2 10^3/uL (4.0-10.0)
[2022-01-28 19:43] LABS: ATYPICAL LYMPH 7 % (0-5); EOSINOPHILS 1 % (0-3); LYMPHOCYTES 85 % (16-44); MONOCYTES 1 % (0-5); NEUTROPHILS 6 % (28-66)
[2022-01-28 19:44] LABS: ANISOCYTOSIS 1+; PLATELET ESTIMATE NORMAL (NORMAL); SMUDGE CELLS 1+
== END ==
LOC: M RAD 17:19
PROVIDERS: ATTEND Internal Medicine
DX: R91.8 Other nonspecific abnormal finding of lung field (principal); R05.9 Cough, unspecified; E86.0 Dehydration; C91.10 Chronic lymphocytic leukemia of B-cell type not having achieved remission; R50.9 Fever, unspecified

== ENCOUNTER → 2022-02-04 | Outpatient (CLI) | payer MEDICARE ==
[2022-02-04 15:13] LABS: HEMATOCRIT 34.9 % (36.0-47.0); HEMOGLOBIN 10.3 g/dl (12.0-15.5); MEAN CORPUSCULAR HEMOGLOBIN 27.7 pg (27.0-33.0); MEAN CORPUSCULAR HGB CONC 29.5 g/dl (32.0-36.5); MEAN CORPUSCULAR VOLUME 93.8 fl (80.0-96.0); PLATELET COUNT, AUTOMATED 169 10^3/uL (150-450); RED BLOOD COUNT 3.72 10^6/uL (4.00-5.40)
[2022-02-04 15:14] LABS: WHITE BLOOD COUNT 86.1 10^3/uL (4.0-10.0)
[2022-02-04 15:55] LABS: ALBUMIN 2.9 GM/DL (3.2-5.2); ALT/SGPT 28 U/L (12-78); BILIRUBIN,TOTAL 0.4 MG/DL (0.2-1.0); BLOOD UREA NITROGEN 32 MG/DL (7-18); CARBON DIOXIDE LEVEL 41 MEQ/L (21-32); CHLORIDE LEVEL 94 MEQ/L (98-107); CREATININE FOR GFR 0.92 MG/DL (0.55-1.30); FOLATE 20.3 NG/ML; GLOMERULAR FILTRATION RATE > 60.0 (>32); GLUCOSE, FASTING 97 MG/DL (70-100); NT-PRO BNP 10978 PG/ML (<450); SODIUM LEVEL 135 MEQ/L (136-145); TOTAL PROTEIN 6.4 GM/DL (6.4-8.2); VITAMIN B12 LEVEL 943 PG/ML
[2022-02-04 19:58] LABS: ATYPICAL LYMPH 3 % (0-5); EOSINOPHILS 1 % (0-3); LYMPHOCYTES 85 % (16-44); MONOCYTES 1 % (0-5); NEUTROPHILS 9 % (28-66); PLATELET ESTIMATE NORMAL (NORMAL)
[2022-02-04 19:59] LABS: ANISOCYTOSIS 2+
== END ==
LOC: M PLALAB 13:56
PROVIDERS: ATTEND Internal Medicine
DX: C91.10 Chronic lymphocytic leukemia of B-cell type not having achieved remission (principal); I10 Essential (primary) hypertension; I50.30 Unspecified diastolic (congestive) heart failure; Z53.20 Procedure and treatment not carried out because of patient's decision for unspecified reasons

== ENCOUNTER → 2022-02-26 | Outpatient (CLI) | payer MEDICARE | LOC: M PLAIMG 12:52 | PROVIDERS: ATTEND Internal Medicine | DX: J18.9 Pneumonia, unspecified organism (principal); I51.7 Cardiomegaly ==

== ENCOUNTER → 2022-03-25 | Outpatient (CLI) | payer MEDICARE ==
[2022-03-25 18:12] LABS: CALCIUM LEVEL 9.3 MG/DL (8.8-10.2); CREATININE FOR GFR 1.11 MG/DL (0.55-1.30); GLOMERULAR FILTRATION RATE 49.7 (>32); MAGNESIUM LEVEL 2.8 MG/DL (1.8-2.4); POTASSIUM SERUM 5.1 MEQ/L (3.5-5.1)
[2022-03-25 18:25] LABS: HEMATOCRIT 33.2 % (36.0-47.0); HEMOGLOBIN 9.5 g/dl (12.0-15.5); MEAN CORPUSCULAR HEMOGLOBIN 27.8 pg (27.0-33.0); MEAN CORPUSCULAR HGB CONC 28.6 g/dl (32.0-36.5); MEAN CORPUSCULAR VOLUME 97.1 fl (80.0-96.0); PLATELET COUNT, AUTOMATED 127 10^3/uL (150-450); RED BLOOD COUNT 3.42 10^6/uL (4.00-5.40)
[2022-03-25 18:34] LABS: WHITE BLOOD COUNT 67.6 10^3/uL (4.0-10.0)
== END ==
LOC: M PLALAB 14:42
PROVIDERS: ATTEND Physician Assistant
DX: I50.32 Chronic diastolic (congestive) heart failure (principal); I48.21 Permanent atrial fibrillation

== ENCOUNTER → 2022-04-21 | Outpatient (CLI) | payer MEDICARE ==
[2022-04-21 17:03] LABS: ALBUMIN 3.4 GM/DL (3.2-5.2); ALT/SGPT 26 U/L (12-78); BILIRUBIN,TOTAL 0.5 MG/DL (0.2-1.0); BLOOD UREA NITROGEN 27 MG/DL (7-18); CALCIUM LEVEL 8.7 MG/DL (8.8-10.2); CARBON DIOXIDE LEVEL 40 MEQ/L (21-32); CHLORIDE LEVEL 94 MEQ/L (98-107); CHOLESTEROL LEVEL 122 MG/DL (<200); CHOLESTEROL RISK RATIO 2.392 (<5); CREATININE FOR GFR 0.94 MG/DL (0.55-1.30); GLOMERULAR FILTRATION RATE > 60.0 (>32); GLUCOSE, FASTING 86 MG/DL (70-100); HDL CHOLESTEROL 51 MG/DL (>40); LDL CHOLESTEROL 61 MG/DL (<100); MAGNESIUM LEVEL 2.3 MG/DL (1.8-2.4); NON-HDL-C 71 MG/DL; POTASSIUM SERUM 4.5 MEQ/L (3.5-5.1); SODIUM LEVEL 136 MEQ/L (136-145); TOTAL PROTEIN 6.9 GM/DL (6.4-8.2); TRIGLYCERIDES LEVEL 52 MG/DL (<150)
== END ==
LOC: M PLALAB 13:30
PROVIDERS: ATTEND Internal Medicine
DX: E78.00 Pure hypercholesterolemia, unspecified (principal); I10 Essential (primary) hypertension

== ENCOUNTER → 2022-04-21 | Outpatient (CLI) | payer MEDICARE ==
[2022-04-21 16:34] LABS: HEMATOCRIT 31.7 % (36.0-47.0); HEMOGLOBIN 9.1 g/dl (12.0-15.5); MEAN CORPUSCULAR HEMOGLOBIN 28.4 pg (27.0-33.0); MEAN CORPUSCULAR HGB CONC 28.7 g/dl (32.0-36.5); MEAN CORPUSCULAR VOLUME 99.1 fl (80.0-96.0); PLATELET COUNT, AUTOMATED 134 10^3/uL (150-450)
[2022-04-21 19:52] LABS: ANISOCYTOSIS 1+; ATYPICAL LYMPH 5 % (0-5); BASOPHILS 1 % (0-1); LYMPHOCYTES 87 % (16-44); NEUTROPHILS 7 % (28-66); PLATELET ESTIMATE DECREASED (NORMAL); POIKILOCYTOSIS 1+
== END ==
LOC: M PLALAB 13:31
PROVIDERS: ATTEND Internal Medicine Hematology & Oncology
DX: D72.829 Elevated white blood cell count, unspecified (principal); D64.9 Anemia, unspecified; C91.10 Chronic lymphocytic leukemia of B-cell type not having achieved remission

== ENCOUNTER → 2022-04-21 | Outpatient (CLI) | payer MEDICARE | LOC: M PLAIMG 12:25 | PROVIDERS: ATTEND Internal Medicine Pulmonary Disease | DX: J90 Pleural effusion, not elsewhere classified (principal); J84.9 Interstitial pulmonary disease, unspecified; R91.8 Other nonspecific abnormal finding of lung field; E78.00 Pure hypercholesterolemia, unspecified; I10 Essential (primary) hypertension; D72.829 Elevated white blood cell count, unspecified; D64.9 Anemia, unspecified; C91.10 Chronic lymphocytic leukemia of B-cell type not having achieved remission ==

== ENCOUNTER → 2022-05-31 | Outpatient (REF) | payer MEDICARE | LOC: M LAB REF 18:28 | PROVIDERS: ATTEND Internal Medicine | DX: R30.0 Dysuria (principal) ==

== ENCOUNTER 2022-06-07 14:43 | Emergency (ER) | payer MEDICARE ==
[~2022-06-07] VITALS: Ht 160 cm; Wt 47.1 kg
[~2022-06-07 14:43] MED LIST changes: +LEVO1TAB38 PO; -LEVO250T3 PO
[2022-06-07] MEDS ORDERED: ADVA115A (14:59)
[2022-06-07] MEDS ORDERED: ELIQ2.5T (14:59)
[2022-06-07] MEDS ORDERED: NITR100C2 (14:59)
[2022-06-07] MEDS ORDERED: LIDOCAINE 2% 5ML JELLY UROJET TOP ONE (15:30)
[2022-06-07 16:57] LABS: HEMATOCRIT 29.3 % (36.0-47.0); HEMOGLOBIN 8.6 g/dl (12.0-15.5); MEAN CORPUSCULAR HEMOGLOBIN 27.2 pg (27.0-33.0); MEAN CORPUSCULAR HGB CONC 29.4 g/dl (32.0-36.5); MEAN CORPUSCULAR VOLUME 92.7 fl (80.0-96.0); PLATELET COUNT, AUTOMATED 146 10^3/uL (150-450); RED BLOOD COUNT 3.16 10^6/uL (4.00-5.40)
[2022-06-07 17:10] LABS: WHITE BLOOD COUNT 75.4 10^3/uL (4.0-10.0)
[2022-06-07 17:33] LABS: ALT/SGPT 29 U/L (12-78); BILIRUBIN,TOTAL 0.5 MG/DL (0.2-1.0); BLOOD UREA NITROGEN 31 MG/DL (7-18); CARBON DIOXIDE LEVEL 36 MEQ/L (21-32); CHLORIDE LEVEL 87 MEQ/L (98-107); CREATININE FOR GFR 0.82 MG/DL (0.55-1.30); DIGOXIN LEVEL 1.3 NG/ML (0.5-2.0); GLOMERULAR FILTRATION RATE > 60.0 (>32); GLUCOSE, FASTING 98 MG/DL (70-100); POTASSIUM SERUM 4.7 MEQ/L (3.5-5.1); SODIUM LEVEL 130 MEQ/L (136-145); TOTAL PROTEIN 6.1 GM/DL (6.4-8.2)
[2022-06-07 18:08] VITALS: BP 112/73
[2022-06-07 18:10] LABS: ATYPICAL LYMPH 2 % (0-5); LYMPHOCYTES 86 % (16-44); MONOCYTES 4 % (0-5); NEUTROPHILS 7 % (28-66); PLATELET ESTIMATE NORMAL (NORMAL)
[2022-06-07 18:11] LABS: ANISOCYTOSIS 1+; SMUDGE CELLS 3+
== END 2022-06-07 19:11 | disposition home or self-care (01) ==
LOC: M ED 14:43
DX: R41.0 Disorientation, unspecified (principal); E86.0 Dehydration; C91.10 Chronic lymphocytic leukemia of B-cell type not having achieved remission; E78.5 Hyperlipidemia, unspecified; F41.9 Anxiety disorder, unspecified; K21.9 Gastro-esophageal reflux disease without esophagitis; Z88.4 Allergy status to anesthetic agent; Z88.5 Allergy status to narcotic agent; Z79.899 Other long term (current) drug therapy; Z79.01 Long term (current) use of anticoagulants

== ENCOUNTER → 2022-06-16 | Outpatient (CLI) | payer MEDICARE ==
[~2022-06-16] MED LIST changes: +ADVA115A INH; +CULT10CA4 PO; +ELIQ2.5T; +NITR100C2; +POTA10CA32 PO; +TORS10TA3 PO; +TORS20TA2; +TORS20TA2 PO; +VALA500T5
[2022-06-16 22:43] LABS: BLOOD UREA NITROGEN 32 MG/DL (7-18); CALCIUM LEVEL 9.5 MG/DL (8.8-10.2); CARBON DIOXIDE LEVEL 44 MEQ/L (21-32); CHLORIDE LEVEL 85 MEQ/L (98-107); CREATININE FOR GFR 0.91 MG/DL (0.55-1.30); GLOMERULAR FILTRATION RATE > 60.0 (>32); GLUCOSE, FASTING 117 MG/DL (70-100); NT-PRO BNP 11700 PG/ML (<450); POTASSIUM SERUM 4.6 MEQ/L (3.5-5.1); SODIUM LEVEL 131 MEQ/L (136-145)
== END ==
LOC: M PLALAB 13:40
PROVIDERS: ATTEND Physician Assistant
DX: I50.32 Chronic diastolic (congestive) heart failure (principal)

== ENCOUNTER 2022-06-17 15:20 | Inpatient (IN) | payer MEDICARE ==
[~2022-06-17] VITALS: Ht 160 cm; Wt 50.7 kg
[~2022-06-17 15:20] MED LIST changes: -CULT10CA4 PO; -POTA10CA32 PO; -TORS10TA3 PO; -TORS20TA2; -TORS20TA2 PO; -VALA500T5
[2022-06-17] MEDS ORDERED: TORS20TA2 (15:31)
[2022-06-17] MEDS ORDERED: VALA500T5 (15:31)
[2022-06-17 18:32] LABS: HEMATOCRIT 31.5 % (36.0-47.0); HEMOGLOBIN 9.3 g/dl (12.0-15.5); MEAN CORPUSCULAR HEMOGLOBIN 27.8 pg (27.0-33.0); MEAN CORPUSCULAR HGB CONC 29.5 g/dl (32.0-36.5); PLATELET COUNT, AUTOMATED 133 10^3/uL (150-450); RED BLOOD COUNT 3.35 10^6/uL (4.00-5.40)
[2022-06-17 18:34] LABS: WHITE BLOOD COUNT 101.2 10^3/uL (4.0-10.0)
[2022-06-17 18:45] LABS: ATYPICAL LYMPH 5 % (0-5); LYMPHOCYTES 89 % (16-44); MONOCYTES 1 % (0-5); NEUTROPHILS 5 % (28-66); PLATELET ESTIMATE DECREASED (NORMAL)
[2022-06-17 18:46] LABS: ANISOCYTOSIS 1+; HYPOCHROMASIA 1+; SMUDGE CELLS 1+
[2022-06-17 19:26] LABS: BLOOD UREA NITROGEN 31 MG/DL (7-18); CALCIUM LEVEL 9.2 MG/DL (8.8-10.2); CARBON DIOXIDE LEVEL 45 MEQ/L (21-32); CHLORIDE LEVEL 85 MEQ/L (98-107); CREATININE FOR GFR 0.79 MG/DL (0.55-1.30); GLOMERULAR FILTRATION RATE > 60.0 (>32); GLUCOSE, FASTING 93 MG/DL (70-100); POTASSIUM SERUM 4.9 MEQ/L (3.5-5.1); SODIUM LEVEL 132 MEQ/L (136-145)
[2022-06-17 19:57] LABS: ALBUMIN 3.5 GM/DL (3.2-5.2); BILIRUBIN,DIRECT 0.2 MG/DL (0.0-0.2); BILIRUBIN,TOTAL 0.5 MG/DL (0.2-1.0); TOTAL PROTEIN 7.2 GM/DL (6.4-8.2)
[2022-06-17] MEDS: IPRATROPIUM 0.5MG/ALBUTEROL 2.5MG INH SOL UD 3ML (DUONEB) NEB SCH (20:00)
[2022-06-17 20:04] LABS: CK-MB VALUE MASS 1.9 NG/ML (<3.6); MB/CK RELATIVE INDEX 3.8 (< OR =4)
[2022-06-17 20:20] LABS: ABG BASE EXCESS 19.2 (-2.0-2.0); ABG HCO3 47.1 MEQ/L (22.0-26.0); ABG O2 SATURATION 96.3 % (95.0-99.0); ABG PARTIAL PRESSURE O2 84.9 mmHg (75.0-100.0); ABG STANDARD HCO3 43.2 MEQ/L (22.0-26.0); ABG TOTAL CO2 49.5 MEQ/L (23.0-31.0); ABG pH (ARTERIAL) 7.399 UNITS (7.350-7.450)
[2022-06-17 20:21] LABS: ABG PARTIAL PRESSURE CO2 77.9 mmHg (35.0-45.0)
[2022-06-17] MEDS ORDERED: HEPARIN SOD (PORCINE) 5000UNITS/ML 1ML VIAL/SYRINGE SC SCH (21:15)
[2022-06-17] MEDS ORDERED: FUROSEMIDE 20MG/2ML VIAL (J1940) IV ONE (21:15)
[2022-06-17] MEDS ORDERED: ALBUTEROL SULFATE 2.5 MG/0.5 ML INH NEB SOLN NEB PRN (21:15)
[2022-06-17] MEDS ORDERED: ACETAMINOPHEN TAB 650MG DOSE (2X325MG) PO PRN (21:15)
[2022-06-17] MEDS ORDERED: CULT10CA4 PO (22:13)
[2022-06-17] MEDS ORDERED: ELIQ2.5T PO (22:13)
[2022-06-17] MEDS ORDERED: POTA10CA32 PO (22:13)
[2022-06-17] MEDS ORDERED: TORS20TA2 PO (22:13)
[2022-06-17] MEDS ORDERED: HOME MED LIST COMPLETE! XX SCH (22:15)
[2022-06-18] VITALS (7 sets, daily range): BP systolic 88–109; BP diastolic 46–59
[2022-06-18 00:09] LABS: BLOOD UREA NITROGEN 30 MG/DL (7-18); CALCIUM LEVEL 8.6 MG/DL (8.8-10.2); CARBON DIOXIDE LEVEL 44 MEQ/L (21-32); CHLORIDE LEVEL 86 MEQ/L (98-107); CREATININE FOR GFR 0.76 MG/DL (0.55-1.30); GLOMERULAR FILTRATION RATE > 60.0 (>32); GLUCOSE, FASTING 110 MG/DL (70-100); POTASSIUM SERUM 4.1 MEQ/L (3.5-5.1); SODIUM LEVEL 133 MEQ/L (136-145)
[2022-06-18] MEDS: IPRATROPIUM 0.5MG/ALBUTEROL 2.5MG INH SOL UD 3ML (DUONEB) NEB SCH ×4 (00:54→20:00)
[2022-06-18 06:50] LABS: BLOOD UREA NITROGEN 28 MG/DL (7-18); CALCIUM LEVEL 9.1 MG/DL (8.8-10.2); CARBON DIOXIDE LEVEL 44 MEQ/L (21-32); CHLORIDE LEVEL 86 MEQ/L (98-107); CREATININE FOR GFR 0.75 MG/DL (0.55-1.30); GLOMERULAR FILTRATION RATE > 60.0 (>32); GLUCOSE, FASTING 83 MG/DL (70-100); POTASSIUM SERUM 4.3 MEQ/L (3.5-5.1); SODIUM LEVEL 133 MEQ/L (136-145)
[2022-06-18] MEDS: ADVAIR HFA 115/21MCG INHALER INH SCH ×2 (08:00→20:11)
[2022-06-18] MEDS ORDERED: SODIUM CHLORIDE 0.9% 1000ML IV ONE (08:30)
[2022-06-18] MEDS: BISOPROLOL FUM 2.5 MG PER 1/2TAB PO SCH (09:00)
[2022-06-18] MEDS: LACTOBACILLUS ACIDOPHILUS CAP (BACID) PO SCH (09:04)
[2022-06-18] MEDS: DIGOXIN 0.125 MG TAB PO SCH (09:05)
[2022-06-18] MEDS: FERROUS SULFATE 325MG TAB PO SCH (09:05)
[2022-06-18] MEDS: POTASSIUM CHLORIDE 10MEQ SR TABLET PO SCH (09:05)
[2022-06-18 10:21] LABS: SODIUM,RANDOM URINE 49 MEQ/L
[2022-06-18] MEDS: APIXABAN 2.5 MG TAB (ELIQUIS) PO SCH ×2 (11:52→20:37)
[2022-06-18 13:40] LABS: BLOOD UREA NITROGEN 27 MG/DL (7-18); CARBON DIOXIDE LEVEL 44 MEQ/L (21-32); CHLORIDE LEVEL 87 MEQ/L (98-107); CREATININE FOR GFR 0.79 MG/DL (0.55-1.30); GLOMERULAR FILTRATION RATE > 60.0 (>32); GLUCOSE, FASTING 89 MG/DL (70-100); POTASSIUM SERUM 4.5 MEQ/L (3.5-5.1); SODIUM LEVEL 133 MEQ/L (136-145)
[2022-06-18] MEDS ORDERED: MULTIVITAMINS/MINERALS THERAP 1 TAB PO SCH (21:00)
[2022-06-18] MEDS ORDERED: ATORVASTATIN 10 MG TAB PO SCH (21:00)
[2022-06-18 21:49] LABS: OSMOLALITY URINE 311 MOSM/KG (50-1400)
[2022-06-19 00:06] VITALS: BP 107/62
[2022-06-19] MEDS: IPRATROPIUM 0.5MG/ALBUTEROL 2.5MG INH SOL UD 3ML (DUONEB) NEB SCH ×3 (02:49→13:49)
[2022-06-19 04:19] VITALS: BP 99/51
[2022-06-19 05:03] LABS: HEMATOCRIT 27.5 % (36.0-47.0); HEMOGLOBIN 7.9 g/dl (12.0-15.5); MEAN CORPUSCULAR HGB CONC 28.7 g/dl (32.0-36.5); MEAN CORPUSCULAR VOLUME 93.9 fl (80.0-96.0); PLATELET COUNT, AUTOMATED 114 10^3/uL (150-450); RED BLOOD COUNT 2.93 10^6/uL (4.00-5.40)
[2022-06-19 05:06] LABS: WHITE BLOOD COUNT 73.6 10^3/uL (4.0-10.0)
[2022-06-19 05:27] LABS: ATYPICAL LYMPH 1 % (0-5); BASOPHILS 1 % (0-1); LYMPHOCYTES 92 % (16-44); NEUTROPHILS 6 % (28-66); PLATELET ESTIMATE DECREASED (NORMAL)
[2022-06-19 05:34] LABS: BLOOD UREA NITROGEN 27 MG/DL (7-18); CALCIUM LEVEL 8.9 MG/DL (8.8-10.2); CARBON DIOXIDE LEVEL 43 MEQ/L (21-32); CHLORIDE LEVEL 89 MEQ/L (98-107); CREATININE FOR GFR 0.77 MG/DL (0.55-1.30); GLOMERULAR FILTRATION RATE > 60.0 (>32); GLUCOSE, FASTING 82 MG/DL (70-100); POTASSIUM SERUM 4.4 MEQ/L (3.5-5.1); SODIUM LEVEL 134 MEQ/L (136-145)
[2022-06-19] MEDS: ADVAIR HFA 115/21MCG INHALER INH SCH (07:16)
[2022-06-19 08:00] VITALS: BP 109/58
[2022-06-19] MEDS: FERROUS SULFATE 325MG TAB PO SCH (08:09)
[2022-06-19] MEDS: DIGOXIN 0.125 MG TAB PO SCH (08:09)
[2022-06-19 08:10] VITALS: BP 109/58
[2022-06-19] MEDS: LACTOBACILLUS ACIDOPHILUS CAP (BACID) PO SCH (08:10)
[2022-06-19] MEDS: BISOPROLOL FUM 2.5 MG PER 1/2TAB PO SCH (08:10)
[2022-06-19] MEDS: POTASSIUM CHLORIDE 10MEQ SR TABLET PO SCH (08:10)
[2022-06-19] MEDS: APIXABAN 2.5 MG TAB (ELIQUIS) PO SCH (08:10)
[2022-06-19] MEDS ORDERED: TORSEMIDE 10 MG TABLET PO SCH (09:00)
[2022-06-19 11:20] LABS: HEMATOCRIT 29.3 % (36.0-47.0); HEMOGLOBIN 8.6 g/dl (12.0-15.5)
[2022-06-19] MEDS ORDERED: TORS10TA3 PO (11:44)
[2022-06-19 12:00] VITALS: BP 103/54
== END 2022-06-19 15:35 | disposition home or self-care (01) | DRG 641 ==
LOC: M ED 15:20 → M ED INP 15:21 → ENRESERV 22:43 → M MSPAV 06-18 00:01 → M PCU 06-18 09:27 → OBSVTOIN 06-18 14:36
PROVIDERS: ADMIT Internal Medicine; ATTEND Internal Medicine
DX: E87.1 Hypo-osmolality and hyponatremia (principal); J96.12 Chronic respiratory failure with hypercapnia; J84.9 Interstitial pulmonary disease, unspecified; C91.10 Chronic lymphocytic leukemia of B-cell type not having achieved remission; J96.11 Chronic respiratory failure with hypoxia; J44.9 Chronic obstructive pulmonary disease, unspecified; I27.81 Cor pulmonale (chronic); I48.91 Unspecified atrial fibrillation; J45.909 Unspecified asthma, uncomplicated; I27.20 Pulmonary hypertension, unspecified; Z66 Do not resuscitate; I95.9 Hypotension, unspecified; I36.0 Nonrheumatic tricuspid (valve) stenosis; D64.9 Anemia, unspecified; E78.5 Hyperlipidemia, unspecified; E87.70 Fluid overload, unspecified; Z79.01 Long term (current) use of anticoagulants; Z88.4 Allergy status to anesthetic agent; Z99.81 Dependence on supplemental oxygen; Z90.49 Acquired absence of other specified parts of digestive tract; Z79.899 Other long term (current) drug therapy; Z88.5 Allergy status to narcotic agent

== ENCOUNTER 2022-06-28 12:13 | Emergency (ER) | payer MEDICARE ==
[~2022-06-28] VITALS: Ht 154.9 cm; Wt 51.0 kg
[~2022-06-28 12:13] MED LIST changes: +CULT10CA4 PO; +POTA10CA32 PO; +TORS10TA3 PO; +TORS20TA2; +TORS20TA2 PO; +VALA500T5
[2022-06-28 13:05] LABS: HEMATOCRIT 34.9 % (36.0-47.0); HEMOGLOBIN 10.3 g/dl (12.0-15.5); MEAN CORPUSCULAR HGB CONC 29.5 g/dl (32.0-36.5); MEAN CORPUSCULAR VOLUME 91.4 fl (80.0-96.0); PLATELET COUNT, AUTOMATED 151 10^3/uL (150-450); RED BLOOD COUNT 3.82 10^6/uL (4.00-5.40)
[2022-06-28 13:09] LABS: WHITE BLOOD COUNT 117.7 10^3/uL (4.0-10.0)
[2022-06-28 13:31] LABS: ATYPICAL LYMPH 4 % (0-5); EOSINOPHILS 2 % (0-3); LYMPHOCYTES 90 % (16-44); MONOCYTES 1 % (0-5); NEUTROPHILS 3 % (28-66)
[2022-06-28 13:33] LABS: ANISOCYTOSIS 1+; HYPOCHROMASIA 1+; PLATELET ESTIMATE NORMAL (NORMAL)
[2022-06-28 13:34] LABS: OVALOCYTES 1+; POIKILOCYTOSIS 1+; SMUDGE CELLS 1+
[2022-06-28 13:36] LABS: CK-MB VALUE MASS 2.4 NG/ML (<3.6); MB/CK RELATIVE INDEX 5.11 (< OR =4); POLYCHROMASIA 1+
[2022-06-28 13:39] LABS: BLOOD UREA NITROGEN 24 MG/DL (7-18); CALCIUM LEVEL 9.5 MG/DL (8.8-10.2); CARBON DIOXIDE LEVEL 34 MEQ/L (21-32); CHLORIDE LEVEL 93 MEQ/L (98-107); GLOMERULAR FILTRATION RATE > 60.0 (>32); GLUCOSE, FASTING 91 MG/DL (70-100); POTASSIUM SERUM 5.2 MEQ/L (3.5-5.1); SODIUM LEVEL 129 MEQ/L (136-145)
[2022-06-28 14:15] LABS: DIGOXIN LEVEL 1.4 NG/ML (0.5-2.0)
[2022-06-28] MEDS ORDERED: ISOVUE-370 76% 100ML VIAL As Ordered ONE (16:14)
[2022-06-28 18:45] VITALS: BP 132/65
== END 2022-06-28 19:05 | disposition home or self-care (01) ==
LOC: M ED 12:13
DX: J90 Pleural effusion, not elsewhere classified (principal); C91.10 Chronic lymphocytic leukemia of B-cell type not having achieved remission; J84.9 Interstitial pulmonary disease, unspecified; I50.9 Heart failure, unspecified; J44.9 Chronic obstructive pulmonary disease, unspecified; E78.5 Hyperlipidemia, unspecified; I48.91 Unspecified atrial fibrillation; I34.8 Other nonrheumatic mitral valve disorders; Z88.5 Allergy status to narcotic agent; Z88.4 Allergy status to anesthetic agent; Z79.899 Other long term (current) drug therapy; Z79.01 Long term (current) use of anticoagulants
CPT/HCPCS: 36415; 71045; 71275; 80048; 80162; 82550; 82553; 84484; 85025; 93005; 93041; 94760; 99285; Q9967